=== PATIENT | female | born 1990 | race Caucasian/White ===

== ENCOUNTER → 2016-07-07 | Outpatient (REF) | payer BC | LOC: M SFHCLERA 17:15 | PROVIDERS: ATTEND Nurse Practitioner Family | DX: J02.9 Acute pharyngitis, unspecified (principal) ==

== ENCOUNTER → 2019-12-13 | Outpatient (REF) | payer OTHER ==
[2020-01-15 10:40] LABS: BASO % 0.3 % (0.0-1.0); EOS # 0.1 10^3/uL (0.0-0.5); HEMATOCRIT 32.8 % (36.0-47.0); HEMOGLOBIN 9.9 g/dl (12.0-15.5); LYMPH # 1.7 10^3/uL (1.5-5.0); MEAN CORPUSCULAR HEMOGLOBIN 25.4 pg (27.0-33.0); MEAN CORPUSCULAR HGB CONC 30.2 g/dl (32.0-36.5); MEAN CORPUSCULAR VOLUME 84.1 fl (80.0-96.0); MONO # 0.4 10^3/uL (0.0-0.8); MONO % 4.9 % (0.0-5.0); NEUTROPHILS # 6.6 10^3/uL (1.5-8.5); NEUTROPHILS % 74.5 % (36.0-66.0); PLATELET COUNT, AUTOMATED 267 10^3/uL (150-450); WHITE BLOOD COUNT 8.8 10^3/uL (4.0-10.0)
[2020-01-27 17:38] LABS: HEPATITIS C VIRUS ABY INDEX 0.2 INDEX (<0.8); HIV 1&2 SCREEN CENTAUR NEGATIVE (NEGATIVE)
== END ==
LOC: M SFHCWAGY 15:08
PROVIDERS: ATTEND Advanced Practice Midwife
DX: Z34.01 Encounter for supervision of normal first pregnancy, first trimester (principal)

== ENCOUNTER → 2020-01-17 | Outpatient (REF) | payer OTHER ==
[2020-01-17 15:41] LABS: CHLAMYDIA DNA AMPLIFICATION NEGATIVE (NEGATIVE); GC DNA AMPLIFICATION NEGATIVE (NEGATIVE)
== END ==
LOC: M SFHCWAGY 13:02
PROVIDERS: ATTEND Obstetrics & Gynecology
DX: N93.0 Postcoital and contact bleeding (principal); N84.1 Polyp of cervix uteri

== ENCOUNTER → 2020-03-27 | Outpatient (REF) | payer BC, OTHER ==
[2020-03-27 12:52] LABS: HEMATOCRIT 30.2 % (36.0-47.0); HEMOGLOBIN 8.5 g/dl (12.0-15.5); MEAN CORPUSCULAR HEMOGLOBIN 22.3 pg (27.0-33.0); MEAN CORPUSCULAR HGB CONC 28.1 g/dl (32.0-36.5); MEAN CORPUSCULAR VOLUME 79.1 fl (80.0-96.0); PLATELET COUNT, AUTOMATED 276 10^3/uL (150-450); RED BLOOD COUNT 3.82 10^6/uL (4.00-5.40); WHITE BLOOD COUNT 8.4 10^3/uL (4.0-10.0)
[2020-03-27 13:26] LABS: FREE T4 1.1 NG/DL (0.76-1.46); THYROID STIMULATING HORMONE 0.981 uIU/ML (0.358-3.740)
== END ==
LOC: M PLALAB 09:57
PROVIDERS: ATTEND Advanced Practice Midwife
DX: Z3A.23 23 weeks gestation of pregnancy (principal); Z34.82 Encounter for supervision of other normal pregnancy, second trimester

== ENCOUNTER → 2020-05-29 | Outpatient (REF) | payer BC, OTHER ==
[~2020-05-29] MED LIST: IRON27TA2 PO; LEVO150T7 PO; PROBCAP14 PO
== END ==
LOC: M SFHCWAGY 14:10
PROVIDERS: ATTEND Obstetrics & Gynecology
DX: Z34.93 Encounter for supervision of normal pregnancy, unspecified, third trimester (principal); Z3A.36 36 weeks gestation of pregnancy

== ENCOUNTER 2020-06-14 09:11 | Inpatient (IN) | payer BC, OTHER ==
[2020-06-14] VITALS (20 sets, daily range): BP systolic 117–158; BP diastolic 60–95
[~2020-06-14] VITALS: Ht 167.6 cm; Wt 94.4 kg
[2020-06-14] MEDS ORDERED: IRON27TA2 PO (09:24)
[2020-06-14] MEDS ORDERED: LEVO150T7 PO (09:24)
[2020-06-14] MEDS ORDERED: PROBCAP14 PO (09:25)
--- OUTSIDE RECORDS SUMMARY | 2020-06-14 09:46 | CCD ---
Author Author [facility] Organization [facility] Address Unknown Phone Unavailable Care Team Providers Care Continuous Process Tanner Rotary Drum Name Role Phone AguayoJuvenal velásquez Unavailable PROBLEMS Type Condition ICD9-CM Code [id number] Code Onset Dates Condition S tatus SNOMED Code Notes Problem Anemia complicating , third trimester O99 .013 Active 75960261 Problem Anemia complicating , second trimester O9 9.012 Active 70446940 Problem Supervision of other normal Z34.80 Ac tive [id number] ALLERGIES No Known Allergies ENCOUNTERS from 1992 to 2020-05-16 Encounter Location Date Provider Diagnosis [facility] [address] [place] [phone] May, Juvenal Aguayo Anemia complicating , third trimester O99.013 and 34 weeks gestation of Z3A.34 IMMUNIZATIONS Vaccine Route Administration Date Status TDAP 0.5mL (Boostrix) IM Intramuscular Apr 25, 2020 Administe red Influenza (6mo & up) Fluzone Unknown July 07, 2016 Oth ers Influenza (6mo & up) Fluzone Unknown May 07, 2015 Ref used Influenza (6mo & up) Fluzone Unknown Feb 01, 2014 Adm inistered SOCIAL HISTORY Sex Assigned At : Social History Observation Description Sex Assigned At Unknown Alcohol Screening: Question Answer Notes Did you have a drink containing alcohol in the past year? No Points 0 Interpretation Negative REASON FOR REFERRAL No Information VITAL SIGNS Weight 204.6 lbs May, Height 66 in May, BMI 33.023 kg/m2 May, Blood pressure systolic 102 mm Hg May, Blood pressure diastolic 68 mm Hg May, MEDICATIONS Medication SIG (Take, Route, Frequency, Duration) Notes Start Da te End Date Status Probiotic Active Levothyroxine Sodium 150 MCG 1 capsule Orally Once a day Active Ferrous Sulfate 325 (65 Fe) MG 1 tablet Orally Twice daily for 3 0 day(s) Mar, Active PROCEDURES No Information RESULTS No Results REASON FOR VISIT 4 WK PN MEDICAL (GENERAL) HISTORY Type Description Date Medical History Hypothyroidism Surgical History D&C Hospitalization History Childbirth Goals Section No Information Health Concerns No Information MEDICAL EQUIPMENT No Information MENTAL STATUS No Information FUNCTIONAL STATUS No Information ASSESSMENTS Encounter Date Diagnosis Assessment Notes Treatment Notes Treatm ent Clinical Notes May, Anemia complicating , third tri mester (ICD-10 - O99.013) May, 34 weeks gestation of (ICD-10 - Z3A.34 ) PLAN OF TREATMENT Next Appt Details 2 Weeks Reason:follow-up Provider Name:Juvenal Aguayo, 09:00:00 AM, [address] [place], [address], Follow Up:2 Weeksfollow-up Insurance Providers Payer Name Payer Address Payer Phone Insured Name Patient Relati onship to Insured Coverage Start Date Coverage End Date [facility] CORPORATE CLAIMS DEPT [address] [place] [phone] NERY ELIZABETH self
--- OUTSIDE RECORDS SUMMARY | 2020-06-14 09:46 | CCD ---
Author Author [facility] Organization [facility] Address Unknown Phone Unavailable Care Team Providers Care Events Administrative Assistant Name Role Phone Akosua Oro Unavailable PROBLEMS Type Condition ICD9-CM Code [id number] Code Onset Dates Condition S tatus SNOMED Code Notes Problem Supervision of other normal Z34.80 Ac tive 273280430 Problem Anemia complicating , second trimester O9 9.012 Active [id number] ALLERGIES No Known Allergies ENCOUNTERS from 1992 to 2020-03-28 Encounter Location Date Provider Diagnosis [facility] [address] [place] [phone] Mar, Akosua Oro Anemia complicati ng , second trimester O99.012 and Second trimester Z34.92 IMMUNIZATIONS Vaccine Route Administration Date Status Influenza (6mo & up) Fluzone Unknown July [...] REASON FOR REFERRAL No Information VITAL SIGNS No information MEDICATIONS Medication SIG (Take, Route, Frequency, Duration) Notes Start Da te End Date Status Probiotic Active Ferrous Sulfate 325 (65 Fe) MG 1 tablet Orally Twice daily for 3 0 day(s) Mar, Active Levothyroxine Sodium 150 MCG 1 capsule Orally Once a day Active PROCEDURES No Information RESULTS No Results REASON FOR VISIT No Information MEDICAL (GENERAL) HISTORY Type Description Date Medical History Hypothyroidism Surgical History D&C Hospitalization History Childbirth Goals Section No Information Health Concerns No Information MEDICAL EQUIPMENT No Information MENTAL STATUS No Information FUNCTIONAL STATUS No Information ASSESSMENTS Encounter Date Diagnosis Assessment Notes Treatment Notes Treatm ent Clinical Notes Mar, Anemia complicating , second tr imester (ICD-10 - O99.012) Mar, Second trimester (ICD-10 - Z34.92) PLAN OF TREATMENT Medication Medication Name Sig Start Date Stop Date Ferrous Sulfate 325 (65 Fe) MG 1 tablet Orally Twice daily f or 30 day(s) Mar, Treatment Notes Test Name Order Date GLUCOSE STEVIE 3 HR GESTATIONAL 2020-03-28 Next Appt Details Provider Name:Juvenal Aguayo, 10:30:00 AM, [address] [place], [address], Insurance Providers Payer Name Payer Address Payer Phone Insured Name Patient Relati onship to Insured Coverage Start Date Coverage End Date [employer] PPO [phone] [address] Marley Sebastian
--- OUTSIDE RECORDS SUMMARY | 2020-06-14 09:46 | CCD ---
Author Author [facility] Organization [facility] Address Unknown Phone Unavailable Care Team Providers Care Burlap Man Name Role Phone LaishaAkosua clark Unavailable PROBLEMS Type Condition ICD9-CM Code [id number] Code Onset Dates Condition S tatus W/U Status Risk SNOMED Code Notes Problem Anemia complicating , third trimester O99 .013 Active confirmed 30899264 Problem Anemia complicating , second trimester O9 9.012 Active confirmed 59360321 Problem Supervision of other normal Z34.80 Ac tive confirm [id number] ALLERGIES No Known Allergies ENCOUNTERS from 1992 to 2020-06-12 Encounter Location Date Provider Diagnosis [facility] [place] [address] Jun, Akosua [place] Encounter for sup ervision of normal in multigravida in third trimester Z34.83 and 37 weeks gestation of Z3A.37 IMMUNIZATIONS Vaccine Route Administration Date Status TDAP [...] FOR REFERRAL No Information VITAL SIGNS Weight 208.8 lbs Jun, Height 66 in 02 Feb, 2021 BMI 33.701 kg/m2 02 Feb, 2021 Blood pressure systolic 110 mm Hg Jun, Blood pressure diastolic 70 mm Hg Jun, MEDICATIONS Medication SIG (Take, Route, Frequency, Duration) Notes Start Da te End Date Status Probiotic Active Ferrous Sulfate 325 (65 Fe) MG 1 tablet Orally Twice daily for 3 0 day(s) Mar, Active Levothyroxine Sodium 150 MCG 1 capsule Orally Once a day Active PROCEDURES No Information RESULTS No Results REASON FOR VISIT 1WK PN MEDICAL (GENERAL) HISTORY Type Description Date Medical History Hypothyroidism Surgical History D&C Hospitalization History Childbirth Goals Section No Information Health Concerns No Information MEDICAL EQUIPMENT No Information MENTAL STATUS No Information FUNCTIONAL STATUS No Information ASSESSMENTS Encounter Date Diagnosis Assessment Notes Treatment Notes Treatm ent Clinical Notes Jun, Encounter for supervision of normal in multigravida in third trimester (ICD-10 - Z34.83) Jun, 37 weeks gestation of (ICD-10 - Z3A.37 ) PLAN OF TREATMENT Next Appt Details 1 Week Reason:return ob Provider Name:Johnie Garces, 2020-06-13 10:20:00 AM, [address] [place], [address], Follow Up:1 Weekreturn ob Insurance Providers Payer Name Payer Address Payer Phone Insured Name Patient Relati onship to Insured Coverage Start Date Coverage End Date [employer] CLAIMS DEPT [address] [facility] [phone] NERY ELIZABETH self
--- OUTSIDE RECORDS SUMMARY | 2020-06-14 09:46 | CCD ---
Author Author [facility] Organization [facility] Address Unknown Phone Unavailable Care Team Providers Care Clinical Support Manager Name Role Phone Akosua Oro Unavailable PROBLEMS Type Condition ICD9-CM Code [id number] Code Onset Dates Condition S tatus SNOMED Code Notes Problem Supervision of other normal Z34.80 Ac tive [id number] ALLERGIES No Known Allergies ENCOUNTERS from 1992 to 2020-03-21 Encounter Location Date Provider Diagnosis [facility] [address] [place] [address] Feb, Akosuaastrid Oro Encounter for sup ervision of other normal in second trimester Z34.82 and 23 weeks gestation of Z3A.23 IMMUNIZATIONS Vaccine Route Administration Date Status Influenza [...] FOR REFERRAL No Information VITAL SIGNS Weight 192 lbs Feb, Height 66 in Feb, BMI 30.99 kg/m2 Feb, Blood pressure systolic 124 mm Hg Feb, Blood pressure diastolic 72 mm Hg Feb, MEDICATIONS Medication SIG (Take, Route, Frequency, Duration) Notes Start Da te End Date Status Levothyroxine Sodium 150 MCG 1 capsule Orally Once a day Active Probiotic Active PROCEDURES No Information RESULTS No Results REASON FOR VISIT 4 WK PN MEDICAL (GENERAL) HISTORY Type Description Date Medical History Hypothyroidism Surgical History D&C Hospitalization History Childbirth Goals Section No Information Health Concerns No Information MEDICAL EQUIPMENT No Information MENTAL STATUS No Information FUNCTIONAL STATUS No Information ASSESSMENTS Encounter Date Diagnosis Assessment Notes Treatment Notes Treatm ent Clinical Notes Feb, Encounter for supervision of other normal in second trimester (ICD-10 - Z34.82) Feb, 23 weeks gestation of (ICD-10 - Z3A.23 ) PLAN OF TREATMENT Treatment Notes Test Name Order Date CBC - Complete Blood Count 2020-03-21 AB SCREEN (INDIRECT MICHEAL)GEL Antibody Screen 2020-03 Type and Screen (D Rh Antibody Screen) 2020-03-21 Glucose Challenge Test 1 Hour 2020-03-21 FREE T4 & TSH PANEL 2020-03-21 Next Appt Details 4 Weeks Reason:return ob Provider Name:Edel Rudolph, 2020-03-27 1 0:20:00 AM, [address] [place], [address], Follow Up:4 Weeksreturn ob Insurance Providers Payer Name Payer Address Payer Phone Insured Name Patient Relati onship to Insured Coverage Start Date Coverage End Date [employer] PPO [phone] [address] Marley Sebastian
--- OUTSIDE RECORDS SUMMARY | 2020-06-14 09:46 | CCD ---
Author Author [facility] Organization [facility] Address Unknown Phone Unavailable Care Team Providers Care Environmental Monitoring Technician Name Role Phone Edel Rudolph Unavailable PROBLEMS Type Condition ICD9-CM Code [id number] Code Onset Dates Condition S tatus SNOMED Code Notes Problem Supervision of other normal Z34.80 Ac tive 578736796 Problem Anemia complicating , second trimester O9 9.012 Active 69621937 ALLERGIES No Known Allergies ENCOUNTERS from 1992 to 2020-03-31 Encounter Location Date Provider Diagnosis [facility] [place] [address] Mar, Edel Simonn Encounter for superv ision of other normal in third trimester Z34.83 IMMUNIZATIONS Vaccine Route Administration Date Status Influenza [...] FOR REFERRAL No Information VITAL SIGNS Weight 197 lbs Mar, Height 66 in Mar, BMI 31.797 kg/m2 Mar, Blood pressure systolic 126 mm Hg Mar, Blood pressure diastolic 74 mm Hg Mar, MEDICATIONS Medication SIG (Take, Route, Frequency, Duration) [...] Treatment Notes Treatm ent Clinical Notes Mar, Encounter for supervision of other normal in third trimester (ICD-10 - Z34.83) PLAN OF TREATMENT Medication Medication Name Sig Start Date Stop Date Ferrous Sulfate 325 (65 Fe) MG 1 tablet Orally Twice daily f or 30 day(s) Mar, Next Appt Details 4 Weeks Reason:PN Provider Name:Juvenal Aguayo, 10:30:00 AM, [address] [place], [address], Follow Up:4 WeeksPN Insurance Providers Payer Name Payer Address Payer Phone Insured Name Patient Relati onship to Insured Coverage Start Date Coverage End Date [employer] PPO [phone] [address] Marley Sebastian
--- OUTSIDE RECORDS SUMMARY | 2020-06-14 09:46 | CCD ---
Author Author [facility] Organization [facility] Address Unknown Phone Unavailable Care Team Providers Care Sweatband Flanger Name Role Phone Juvenal Aguayo Unavailable PROBLEMS Type Condition ICD9-CM Code [id number] Code Onset Dates Condition S tatus W/U Status Risk SNOMED Code Notes Problem Anemia complicating , third trimester O99 .013 Active confirmed 90965783 Problem Anemia complicating , second trimester O9 9.012 Active confirmed 54905725 Problem Supervision of other normal Z34.80 Ac tive confirm [id number] ALLERGIES No Known Allergies ENCOUNTERS from 1992 to 2020-06-12 Encounter Location Date Provider Diagnosis [facility] [address] [place] [phone] May, Juvenal Aguayo Anemia complicating , third trimester O99.013 and 36 weeks gestation of Z3A.36 IMMUNIZATIONS Vaccine Route Administration Date Status TDAP [...] FOR REFERRAL No Information VITAL SIGNS Weight 205.6 lbs May, Height 66 in May, BMI 33.185 kg/m2 May, Blood pressure systolic 110 mm Hg May, Blood pressure diastolic 70 mm Hg May, MEDICATIONS Medication SIG (Take, Route, Frequency, Duration) Notes Start Da te End Date Status Probiotic Active Ferrous Sulfate 325 (65 Fe) MG 1 tablet Orally Twice daily for 3 0 day(s) Mar, Active Levothyroxine Sodium 150 MCG 1 capsule Orally Once a day Active PROCEDURES No Information RESULTS Component Value Reference Range GROUP B STREP CULTURE Reviewed date:05/31/2020 11:28:42 Interpretation: Performing Lab:[facility], [facility] [address] [facility] [id number] , ,[place] [id number] REASON FOR VISIT 2WK PN MEDICAL (GENERAL) HISTORY Type Description Date Medical History Hypothyroidism Surgical History D&C Hospitalization History Childbirth Goals Section No Information Health Concerns No Information MEDICAL EQUIPMENT No Information MENTAL STATUS No Information FUNCTIONAL STATUS No Information ASSESSMENTS Encounter Date Diagnosis Assessment Notes Treatment Notes Treatm ent Clinical Notes May, Anemia complicating , third tri mester (ICD-10 - O99.013) May, 36 weeks gestation of (ICD-10 - Z3A.36 ) PLAN OF TREATMENT Next Appt Details 1 Week Reason:PN Provider Name:Johnie Keke Garces, 2020-06-13 10:20:00 AM, [address] [place], [address], Follow Up:1 WeekPN Insurance Providers Payer Name Payer Address Payer Phone Insured Name Patient Relati onship to Insured Coverage Start Date Coverage End Date [facility] CORPORATE CLAIMS DEPT [address] [place] [phone] NERY ELIZABETH self
--- OUTSIDE RECORDS SUMMARY | 2020-06-14 09:46 | CCD ---
Author Author [facility] Organization [facility] Address Unknown Phone Unavailable Care Team Providers Care Manager Of Warehouse Name Role Phone Juvenal Aguayo Unavailable PROBLEMS Type Condition ICD9-CM Code [id number] Code Onset Dates Condition S tatus SNOMED Code Notes Problem Anemia complicating , third trimester O99 .013 Active 07534738 Problem Anemia complicating , second trimester O9 9.012 Active 95695263 Problem Supervision of other normal Z34.80 Ac tive [id number] ALLERGIES No Known Allergies ENCOUNTERS from 1992 to 2020-05-02 Encounter Location Date Provider Diagnosis [facility] [address] [place] [phone] Apr, Juvenal Aguayo Anemia complicating , third trimester O99.013 ; 31 weeks gestation of Z3A.31 and Encounter for immunization Z23 IMMUNIZATIONS Vaccine Route Administration Date Status TDAP [...] FOR REFERRAL No Information VITAL SIGNS Weight 202 lbs Apr, Height 66 in Apr, BMI 32.604 kg/m2 Apr, Blood pressure systolic 108 mm Hg Apr, Blood pressure diastolic 60 mm Hg Apr, MEDICATIONS Medication SIG (Take, Route, Frequency, Duration) Notes Start Da te End Date Status Ferrous Sulfate 325 (65 Fe) MG 1 tablet Orally Twice daily for 3 0 day(s) Mar, Active Probiotic Active Levothyroxine Sodium 150 MCG 1 capsule Orally Once a day Active PROCEDURES from 1992 to 2020-05-02 Procedure Date Ordered Result Body Site Immunization: Boostrix 0.5mL IM (TDAP) 2020-04-25 N/A RESULTS No Results REASON FOR VISIT 4 WK PN MEDICAL (GENERAL) HISTORY Type Description Date Medical History Hypothyroidism Surgical History D&C Hospitalization History Childbirth Goals Section No Information Health Concerns No Information MEDICAL EQUIPMENT No Information MENTAL STATUS No Information FUNCTIONAL STATUS No Information ASSESSMENTS Encounter Date Diagnosis Assessment Notes Treatment Notes Treatm ent Clinical Notes Apr, Anemia complicating , third tri mester (ICD-10 - O99.013) Apr, 31 weeks gestation of (ICD-10 - Z3A.31 ) Apr, Encounter for immunization (ICD-10 - Z23) PLAN OF TREATMENT Next Appt Details 2 Weeks Reason:follow-up Provider Name:Juvenal Aguayo, 09:40:00 AM, [facility] [place], [address], Follow Up:2 Weeksfollow-up Insurance Providers Payer Name Payer Address Payer Phone Insured Name Patient Relati onship to Insured Coverage Start Date Coverage End Date [employer] PPO [phone] [place] [id number] Marley Sebastian
--- OUTSIDE RECORDS SUMMARY | 2020-06-14 09:47 | CCD ---
Author Author [facility] Organization [facility] Address Unknown Phone Unavailable Care Team Providers Care Material Requirements Planning Manager Name Role Phone Lori De La Paz PA Unavailable Unavailable Ana Cristina, L Anupama PA Unavailable Unavailable Ana Cristina, L Anupama PA Unavailable Unavailable Ana Cristina, L Anupama PA Unavailable Unavailable Ana Cristina, L Anupama PA Unavailable Unavailable Ana Cristina, L Anupama PA Unavailable Unavailable Ana Cristina, L Anupama PA Unavailable Unavailable Ana Cristina, L Anupama PA Unavailable Unavailable Ana Cristina, L Anupama PA Unavailable Unavailable Ana Cristina, L Anupama PA Unavailable Unavailable Ana Cristina, L Anupama PA Unavailable Unavailable Ana Cristina, L Anupama PA Unavailable Unavailable Ana Cristina, L Anupama PA Unavailable Unavailable Ana Cristina, L Anupama PA Unavailable Unavailable Ana Cristina, L Anupama PA Unavailable Unavailable Ana Cristina, L Anupama PA Unavailable Unavailable Ana Cristina, L Anupama PA Unavailable Unavailable Ana Cristina, L Anupama PA Unavailable Unavailable Ana Cristina, L Anupama PA Unavailable Unavailable Ana Cristina, L Anupama PA Unavailable Unavailable Ana Cristina, L Anupama PA Unavailable Unavailable Ana Cristina, L Anupama PA Unavailable Unavailable Ana Cristina, L Anupama PA Unavailable Unavailable Ana Cristina, L Anupama PA Unavailable Unavailable Ana Cristina, L Anupama PA Unavailable Unavailable Ana Cristina, L Anupama PA Unavailable Unavailable Ana Cristina, L Anupama PA Unavailable Unavailable Ana Cristina, L Anupama PA Unavailable Unavailable Ana Cristina, L Anupama PA Unavailable Unavailable Ana Cristina, L Anupama PA Unavailable Unavailable Ana Cristina, L Anupama PA Unavailable Unavailable Ana Cristina, L Anupama PA Unavailable Unavailable Ana Cristina, L Anupama PA Unavailable Unavailable Ana Cristina, L Anupama PA Unavailable Unavailable Paredes, R Julio PA Unavailable Unavailable XAVIERDiego MD Unavailable Unavailable XAVIERDiego MD Unavailable Unavailable XAVIER F BETHANY BUCKLEY Unavailable Unavailable XAVIER F BETHANY BUCKLEY Unavailable Unavailable XAVIERDiego MD Unavailable Unavailable XAVIERDiego MD Unavailable Unavailable XAVIERDiego MD Unavailable Unavailable XAVIER F BETHANY BUCKLEY Unavailable Unavailable XAVIER F BETHANY BUCKLEY Unavailable Unavailable XAVIER F BETHANY BUCKLEY Unavailable Unavailable XAVIER F BETHANY BUCKLEY Unavailable Unavailable XAVIERDiego MD Unavailable Unavailable XAVIER F BETHANY BUCKLEY Unavailable Unavailable XAVIER F BETHANY BUCKLEY Unavailable Unavailable XAVIER F BETHANY BUCKLEY Unavailable Unavailable XAVIER F BETHANY BUCKLEY Unavailable Unavailable XAVIER F BETHANY BUCKLEY Unavailable Unavailable XAVIER, F BETHANY BUCKLEY Unavailable Unavailable XAVIER, Diego SIMS MD Unavailable Unavailable XAVIER, Diego SIMS MD Unavailable Unavailable XAVIER, Diego SIMS MD Unavailable Unavailable XAVIER, Diego SIMS MD Unavailable Unavailable XAVIER, F BETHANY BUCKLEY Unavailable Unavailable XAVIER, Diego SIMS MD Unavailable Unavailable XAVIER, Diego SIMS MD Unavailable Unavailable XAVIER, Diego SIMS MD Unavailable Unavailable XAVIER, Diego SIMS MD Unavailable Unavailable Amy GERMAN MD Unavailable +[phone] Amy GERMAN MD Unavailable +011 Amy GERMAN MD Unavailable +011 Amy GERMAN MD Unavailable +011 Amy GERMAN MD Unavailable +011 Amy GERMAN MD Unavailable +011 Amy GERMAN MD Unavailable +011 Amy GERMAN MD Unavailable +011 Amy GERMAN MD Unavailable +011 Amy GERMAN MD Unavailable +011 Amy GERMAN MD Unavailable +[phone] Paredes, R Julio PA Unavailable Paredes, R Julio PA Unavailable Paredes, R Julio PA Unavailable Paredes, R Julio PA Unavailable Paredes, R Julio PA Unavailable Paredes, R Julio PA Unavailable Paredes, R Julio PA Unavailable Paredes, R Julio PA Unavailable WEI FORREST RIM ROLLER SETTER Unavailable Unavailable WEI FORREST RIM ROLLER SETTER Unavailable Unavailable WEI FROREST RIM ROLLER SETTER Unavailable Unavailable WEI FORREST RIM ROLLER SETTER Unavailable Unavailable WEI FORREST RIM ROLLER SETTER Unavailable Unavailable WEI FORREST RIM ROLLER SETTER Unavailable Unavailable FORREST, WEI MARIA EUGENIA RIM ROLLER SETTER Unavailable Unavailable FORREST, WEI MARIA EUGENIA RIM ROLLER SETTER Unavailable Unavailable FORREST, WEI MARIA EUGENIA RIM ROLLER SETTER Unavailable Unavailable FORREST, WEI MARIA EUGENIA RIM ROLLER SETTER Unavailable Unavailable FORREST, WEI MARIA EUGENIA RIM ROLLER SETTER Unavailable Unavailable FORREST, WEI MARIA EUGENIA RIM ROLLER SETTER Unavailable Unavailable FORREST, WEI MARIA EUGENIA RIM ROLLER SETTER Unavailable Unavailable FORREST, WEI MARIA EUGENIA RIM ROLLER SETTER Unavailable Unavailable FORREST, WEI MARIA EUGENIA RIM ROLLER SETTER Unavailable Unavailable FORREST, WEI MARIA EUGENIA RIM ROLLER SETTER Unavailable Unavailable FORREST, WEI MARIA EUGENIA RIM ROLLER SETTER Unavailable Unavailable FORREST, WEI MARIA EUGENIA RIM ROLLER SETTER Unavailable Unavailable FORREST, WEI MARIA EUGENIA RIM ROLLER SETTER Unavailable Unavailable FORREST, WEI MARIA EUGENIA RIM ROLLER SETTER Unavailable Unavailable FORREST, WEI MARIA EUGENIA RIM ROLLER SETTER Unavailable Unavailable FORREST, WEI MARIA EUGENIA RIM ROLLER SETTER Unavailable Unavailable FORREST, WEI MARIA EUGENIA RIM ROLLER SETTER Unavailable Unavailable FORREST, WEI MARIA EUGENIA RIM ROLLER SETTER Unavailable Unavailable FORREST, WEI MARIA EUGENIA RIM ROLLER SETTER Unavailable Unavailable FORREST, WEI MARIA EUGENIA RIM ROLLER SETTER Unavailable Unavailable FORREST, WEI MARIA EUGENIA RIM ROLLER SETTER Unavailable Unavailable FORREST, WEI MARIA EUGENIA RIM ROLLER SETTER Unavailable Unavailable FORREST, WEI MARIA EUGENIA RIM ROLLER SETTER Unavailable Unavailable FORREST, WIE MARIA EUGENIA RIM ROLLER SETTER Unavailable Unavailable FORREST, WEI MARIA EUGENIA RIM ROLLER SETTER Unavailable Unavailable FORREST, WEI MARIA EUGENIA RIM ROLLER SETTER Unavailable Unavailable FORREST, WEI MARIA EUGENIA RIM ROLLER SETTER Unavailable Unavailable FORREST, WEI MARIA EUGENIA RIM ROLLER SETTER Unavailable Unavailable FORREST, WEI MARIA EUGENIA RIM ROLLER SETTER Unavailable Unavailable FORREST, WEI MARIA EUGENIA RIM ROLLER SETTER Unavailable Unavailable FORREST, WEI MARIA EUGENIA RIM ROLLER SETTER Unavailable Unavailable FORREST, WEI MARIA EUGENIA RIM ROLLER SETTER Unavailable Unavailable FORREST, WEI MARIA EUGENIA RIM ROLLER SETTER Unavailable Unavailable FORREST, WEI MARIA EUGENIA RIM ROLLER SETTER Unavailable Unavailable FORREST, WEI MARIA EUGENIA RIM ROLLER SETTER Unavailable Unavailable FORREST, WEI MARIA EUGENIA RIM ROLLER SETTER Unavailable Unavailable FORREST, WEI MARIA EUGENIA RIM ROLLER SETTER Unavailable Unavailable FORREST, WEI MARIA EUGENIA RIM ROLLER SETTER Unavailable Unavailable FORREST, WEI MARIA EUGENIA RIM ROLLER SETTER Unavailable Unavailable FORREST, WEI MARIA EUGENIA RIM ROLLER SETTER Unavailable Unavailable FORREST, WEI MARIA EUGENIA RIM ROLLER SETTER Unavailable Unavailable FORREST, WEI MARIA EUGENIA RIM ROLLER SETTER Unavailable Unavailable FORREST, WEI MARIA EUGENIA RIM ROLLER SETTER Unavailable Unavailable FORREST, WEI MARIA EUGENIA RIM ROLLER SETTER Unavailable Unavailable Vallandigham, D Akosua CNM Unavailable Unavailabl e Vallandigham, D Akosua CNM Unavailable Unavailabl e Vallandigham, D Akosua CNM Unavailable Unavailabl e Vallandigham, D Akosua CNM Unavailable Unavailabl e Vallandigham, D Akosua CNM Unavailable Unavailabl e Vallandigham, D Akosua CNM Unavailable Unavailabl e Vallandigham, D Akosua CNM Unavailable Unavailabl e Vallandigham, D Akosua CNM Unavailable Unavailabl e Vallandigham, D Akosua CNM Unavailable Unavailabl e Vallandigham, D Akosua CNM Unavailable Unavailabl e Vallandigham, D Akosua CNM Unavailable Unavailabl e Vallandigham, D Akosua CNM Unavailable Unavailabl e Vallandigham, D Akosua CNM Unavailable Unavailabl e Vallandigham, D Akosua CNM Unavailable Unavailabl e Vallandigham, D Akosua CNM Unavailable Unavailabl e Vallandigham, D Akosua CNM Unavailable Unavailabl e Vallandigham, D Akosua CNM Unavailable Unavailabl e Vallandigham, D Akosua CNM Unavailable Unavailabl e Vallandigham, D Akosua CNM Unavailable Unavailabl e Vallandigham, D Akosua CNM Unavailable Unavailabl e Vallandigham, D Akosua CNM Unavailable Unavailabl e Vallandigham, D Akosua CNM Unavailable Unavailabl e Vallandigham, D Akosua CNM Unavailable Unavailabl e Vallandigham, D Akosua CNM Unavailable Unavailabl e Vallandigham, D Akosua CNM Unavailable Unavailabl e FORREST, WEI MARIA EUGENIA RIM ROLLER SETTER Unavailable Unavailable FORREST, WEI MARIA EUGENIA RIM ROLLER SETTER Unavailable Unavailable FORREST, WEI MARIA EUGENIA RIM ROLLER SETTER Unavailable Unavailable FORREST, WEI MARIA EUGENIA RIM ROLLER SETTER Unavailable Unavailable FORREST, WEI MARIA EUGENIA RIM ROLLER SETTER Unavailable Unavailable FORREST, WEI MARIA EUGENIA RIM ROLLER SETTER Unavailable Unavailable FORREST, WEI MARIA EUGENIA RIM ROLLER SETTER Unavailable Unavailable FORREST, WEI MARIA EUGENIA RIM ROLLER SETTER Unavailable Unavailable FORREST, WEI MARIA EUGENIA RIM ROLLER SETTER Unavailable Unavailable FORREST, WEI MARIA EUGENIA RIM ROLLER SETTER Unavailable Unavailable FORREST, WEI MARIA EUGENIA RIM ROLLER SETTER Unavailable Unavailable FORREST, WEI MARIA EUGENIA RIM ROLLER SETTER Unavailable Unavailable FORREST, WEI MARIA EUGENIA RIM ROLLER SETTER Unavailable Unavailable FORREST, WEI MARIA EUGENIA RIM ROLLER SETTER Unavailable Unavailable FORREST, WEI MARIA EUGENIA RIM ROLLER SETTER Unavailable Unavailable FORREST, WEI MARIA EUGENIA RIM ROLLER SETTER Unavailable Unavailable FORREST, WEI MARIA EUGENIA RIM ROLLER SETTER Unavailable Unavailable FORREST, WEI MARIA EUGENIA RIM ROLLER SETTER Unavailable Unavailable FORREST, WEI MARIA EUGENIA RIM ROLLER SETTER Unavailable Unavailable FORREST, WEI MARIA EUGENIA RIM ROLLER SETTER Unavailable Unavailable FORREST, WEI MARIA EUGENIA RIM ROLLER SETTER Unavailable Unavailable FORREST, WEI MARIA EUGENIA RIM ROLLER SETTER Unavailable Unavailable FORREST, WEI MARIA EUGENIA RIM ROLLER SETTER Unavailable Unavailable FORREST, WEI MARIA EUGENIA RIM ROLLER SETTER Unavailable Unavailable FORREST, WEI MARIA EUGENIA RIM ROLLER SETTER Unavailable Unavailable FORREST, WEI MARIA EUGENIA RIM ROLLER SETTER Unavailable Unavailable FORREST, WEI MARIA EUGENIA RIM ROLLER SETTER Unavailable Unavailable FORREST, WEI MARIA EUGENIA RIM ROLLER SETTER Unavailable Unavailable FORREST, WEI MARIA EUGENIA RIM ROLLER SETTER Unavailable Unavailable FORREST, WEI MARIA EUGENIA RIM ROLLER SETTER Unavailable Unavailable FORREST, WEI MARIA EUGENIA RIM ROLLER SETTER Unavailable Unavailable FORREST, WEI MARIA EUGENIA RIM ROLLER SETTER Unavailable Unavailable FORREST, WEI MARIA EUGENIA RIM ROLLER SETTER Unavailable Unavailable FORREST, WEI MARIA EUGENIA RIM ROLLER SETTER Unavailable Unavailable FORREST, WEI MARIA EUGENIA RIM ROLLER SETTER Unavailable Unavailable FORREST, WEI MARIA EUGENIA RIM ROLLER SETTER Unavailable Unavailable FORREST, WEI MARIA EUGENIA RIM ROLLER SETTER Unavailable Unavailable FORREST, WEI MARIA EUGENIA RIM ROLLER SETTER Unavailable Unavailable FORREST, WEI MARIA EUGENIA RIM ROLLER SETTER Unavailable Unavailable FORREST, WEI MARIA EUGENIA RIM ROLLER SETTER Unavailable Unavailable FORREST, WEI MARIA EUGENIA RIM ROLLER SETTER Unavailable Unavailable FORREST, WEI MARIA EUGENIA RIM ROLLER SETTER Unavailable Unavailable FORREST, WEI MARIA EUGENIA RIM ROLLER SETTER Unavailable Unavailable FORREST, WEI MARIA EUGENIA RIM ROLLER SETTER Unavailable Unavailable FORREST, WEI MARIA EUGENIA RIM ROLLER SETTER Unavailable Unavailable FORREST, WEI MARIA EUGENIA RIM ROLLER SETTER Unavailable Unavailable FORREST, WEI MARIA EUGENIA RIM ROLLER SETTER Unavailable Unavailable FORREST, WEI MARIA EUGENIA RIM ROLLER SETTER Unavailable Unavailable FORREST, WEI MARIA EUGENIA RIM ROLLER SETTER Unavailable Unavailable FORREST, WEI MARIA EUGENIA RIM ROLLER SETTER Unavailable Unavailable MOREL, REINA MELISSA RIM ROLLER SETTER Unavailable Unavailable MOREL, REINA MELISSA RIM ROLLER SETTER Unavailable Unavailable MOREL, REINA MELISSA RIM ROLLER SETTER Unavailable Unavailable MOREL, REINA MELISSA RIM ROLLER SETTER Unavailable Unavailable MOREL, REINA MELISSA RIM ROLLER SETTER Unavailable Unavailable MOREL, REINA MELISSA RIM ROLLER SETTER Unavailable Unavailable MOREL, REINA MELISSA RIM ROLLER SETTER Unavailable Unavailable MOREL, REINA MELISSA RIM ROLLER SETTER Unavailable Unavailable MOREL, REINA MELISSA RIM ROLLER SETTER Unavailable Unavailable MOREL, REINA MELISSA RIM ROLLER SETTER Unavailable Unavailable MOREL, REINA MELISSA RIM ROLLER SETTER Unavailable Unavailable MOREL, REINA MELISSA RIM ROLLER SETTER Unavailable Unavailable MOREL, REINA MELISSA RIM ROLLER SETTER Unavailable Unavailable MOREL, REINA MELISSA RIM ROLLER SETTER Unavailable Unavailable MOREL, REINA MELISSA RIM ROLLER SETTER Unavailable Unavailable MOREL, REINA MELISSA RIM ROLLER SETTER Unavailable Unavailable MOREL, REINA MELISSA RIM ROLLER SETTER Unavailable Unavailable MOREL, REINA MELISSA RIM ROLLER SETTER Unavailable Unavailable MOREL, REINA MELISSA RIM ROLLER SETTER Unavailable Unavailable MOREL, REINA MELISSA RIM ROLLER SETTER Unavailable Unavailable MOREL, REINA MELISSA RIM ROLLER SETTER Unavailable Unavailable MOREL, REINA MELISSA RIM ROLLER SETTER Unavailable Unavailable MOREL, REINA MELISSA RIM ROLLER SETTER Unavailable Unavailable Re-disclosure Warning The records that you are about to access may contain information from federally-assisted alcohol or drug abuse programs. If such information is present, then the following federally mandated warning applies: This information has been disclosed to you from records protected by federal confidentiality rules (42 CFR part 2). The federal rules prohibit you from making any further disclosure of this information unless further disclosure is expressly permitted by the written consent of the person to whom it pertains or as otherwise permitted by 42 CFR part 2. A general authorization for the release of medical or other information is NOT sufficient for this purpose. The Federal rules restrict any use of the information to criminally investigate or prosecute any alcohol or drug abuse patient.The records that you are about to access may contain highly sensitive health information, the redisclosure of which is protected by Article 27-F of the [facility] Public Health law. If you continue you may have access to information: Regarding HIV / AIDS; Provided by facilities licensed or operated by the [facility] Office of Mental Health; or Provided by the [facility] Office for People With Developmental Disabilities. If such information is present, then the following [facility] mandated warning applies: This information has been disclosed to you from confidential records which are protected by state law. State law prohibits you from making any further disclosure of this information without the specific written consent of the person to whom it pertains, or as otherwise permitted by law. Any unauthorized further disclosure in violation of state law may result in a fine or shelter sentence or both. A general authorization for the release of medical or other information is NOT sufficient authorization for further disc losure. Allergies and Adverse Reactions Type Description Substance Reaction Status Data Source(s ) No Known Drug Allergies No Known Drug Allergies [facility] No Known Environmental Allergies No Known Environmental Al lergies [facility] No Known Food Allergies No Known Food Allergies [facility] Drug allergy Drug allergy No Known Allergies [facility] Family History Family Member Name Family Member Gender Family Member Status Date o f Status Description Data Source(s) Unknown Male Problem MEDENT ([facility]) Encounters Encounter Providers Location Date Indications Data Source(s ) ( ESTOB) [facility] Est OB [address] [place] [address] 06/05/2020 12:00:00 AM EST eCW1 ([facility]) ( ESTOB) [facility] Est OB [address] [place] [address] 05/29/2020 12:00:00 AM EST eCW1 ([facility]) (WC ESTOB) [facility] [address] [place] [address] 05/14/2020 12:00:00 AM EST eCW1 [facility] (WC ESTOB) [facility] Est OB [address] [place] [address] 04/25/2020 12:00:00 AM EST eCW1 ([facility]) Outpatient Attender: Akosua Oro [facility] ED-LABGH 04/07/2020 07:34:00 AM EST - 04/07/2020 07:35:00 AM EST Z34.92 [facility] Z34.92 Patient discharged. (WC ESTOB) [facility] [address] [place] [address] 03/27/2020 12:00:00 AM EST eCW1 ([facility]) Unknown [address] [facility] [address] 03/27/2020 12:00:00 AM EST eCW1 ([facility]) ( ESTOB) [facility] Est OB [address] [place] [address] 02/28/2020 12:00:00 AM EDT eCW1 ([facility]) Outpatient Attender: LIZBET GERMAN MD ED-IMAG 01/30 07:48:00 AM EDT - 01/31/2020 07:49:00 AM EDT Z34.82 [facility] Z34.82 Patient discharged. Outpatient CPSCAORT-LABEJN 12/20/2019 03:14:00 PM EDT [facility] Outpatient Attender: Anupama BAKER ED-LABGH 0 12/20/2019 11:42:00 AM EDT - 12/20/2019 11:43:00 AM EDT E06.3 [facility] E06.3 Patient discharged. Outpatient CPSCAORT-LABEJN 10/04/2019 03:47:00 PM EDT [facility] Outpatient Attender: Anupama BAKER ED-LABGH 0 10/04/2019 11:56:00 AM EDT - 10/04/2019 11:57:00 AM EDT E039 E559 D509 [facility] E039 E559 D509 Patient discharged. Outpatient Attender: MELISSA MOREL NPAtte nder: BETHANY PARK MDConsultant: MARIA EUGENIA FORREST NP 09/27/2019 03:43:00 PM EDT - 09/27/2019 03:43 :00 PM EDT [facility] Outpatient Attender: Anupama BAKER ED-IMAG 0 07/06/2019 02:59:00 PM EST - 07/06/2019 03:00:00 PM EST HYPOTHYROIDISM [facility] HYPOTHYROIDISM Patient discharged. Outpatient [facility] 06/28/2019 07:11:00 PM [facility] Outpatient Attender: Anupama BAKER ED-LAB 0 06/28/2019 03:40:00 PM EST - 06/28/2019 03:41:00 PM EST E0 [id number] [facility] E039 [id number] Patient discharged. Outpatient Attender: MARIA EUGENIA FORREST NP ED-LAB 04/2020 10:12:00 AM EST - 06/15/2019 10:13:00 AM EST [address] E039 Patient discharged. Outpatient Attender: MARIA EUGENIA FORREST [facility] 02:47:00 PM EST - 05/20/2019 02:48:00 PM [facility] Patient discharged. Outpatient [facility]-LABEJN 05/18/2019 04:41:00 PM [facility] Emergency Attender: Julio CORTEZttender: Julio BAKER ED-ED 05/18/2019 09:14:00 AM EST - 05/18/2019 12:18:00 PM EST [facility] SOB Patient discharged. Outpatient Attender: MARIA EUGENIA FORREST NP ED-LAB 01:15:00 PM EST - 05/16/2019 01:16:00 PM EST [address] E039 Patient discharged. Immunizations Vaccine Date Status Description Data Source(s) Tdap 04/25/2020 10:43:00 AM EST completed e CW1 ([facility]) Tdap 04/25/2020 10:43:00 AM EST completed e CW1 ([facility]) Tdap 04/25/2020 10:43:00 AM EST completed e CW1 ([facility]) Tdap 04/25/2020 10:43:00 AM EST completed e CW1 ([facility]) Medications Medication Brand Name Start Date Product Form Dose Route Admi nistrative Instructions Pharmacy Instructions Status Indications Reaction Description Data Source(s) 150 mcg 05/23/2020 12:00:00 AM EST tablet 30 TAKE ONE TABLET BY MOUTH EVERY MORNING ON AN EMPTY STOMACH TAKE ONE TABLET BY MOUTH EVERY MORNING O N AN EMPTY STOMACH SOLD: 05/26/2020 [facility] 325 mg (65 mg iron) 03/28/2020 12:00:00 AM EST tablet 60 TAKE ONE TABLET BY MOUTH TWICE A DAY TAKE ONE TABLET BY MOUTH TWICE A DAY SOLD: 03/28/2020 [facility] ferrous sulfate 325 MG Oral Tablet Ferrous Sulfate 325 (65 Fe) MG Ferrous Sulfate 325 (65 Fe) MG 03/27/2020 12:00:00 AM EST 1.0 {tablet} active Ferrous Sulfate 325 (65 Fe) MG eCW1 ([facility]) ferrous sulfate 325 MG Oral Tablet Ferrous Sulfate 325 (65 Fe) MG Ferrous Sulfate 325 (65 Fe) MG 03/27/2020 12:00:00 AM EST 1.0 {tablet} active Ferrous Sulfate 325 (65 Fe) MG eCW1 ([facility]) ferrous sulfate 325 MG Oral Tablet Ferrous Sulfate 325 (65 Fe) MG Ferrous Sulfate 325 (65 Fe) MG 03/27/2020 12:00:00 AM EST 1.0 {tablet} active Ferrous Sulfate 325 (65 Fe) MG eCW1 ([facility]) ferrous sulfate 325 MG Oral Tablet Ferrous Sulfate 325 (65 Fe) MG Ferrous Sulfate 325 (65 Fe) MG 03/27/2020 12:00:00 AM EST 1.0 {tablet} active Ferrous Sulfate 325 (65 Fe) MG eCW1 ([facility]) ferrous sulfate 325 MG Oral Tablet Ferrous Sulfate 325 (65 Fe) MG Ferrous Sulfate 325 (65 Fe) MG 03/27/2020 12:00:00 AM EST 1.0 {tablet} active Ferrous Sulfate 325 (65 Fe) MG eCW1 ([facility]) ferrous sulfate 325 MG Oral Tablet Ferrous Sulfate 325 (65 Fe) MG Ferrous Sulfate 325 (65 Fe) MG 03/27/2020 12:00:00 AM EST 1.0 {tablet} active Ferrous Sulfate 325 (65 Fe) MG eCW1 ([facility]) 150 mcg 03/12/2020 12:00:00 AM EST tablet 30 TAKE ONE TABLET BY MOUTH EVERY MORNING ON AN EMPTY STOMACH TAKE ONE TABLET BY MOUTH EVERY MORNING O N AN EMPTY STOMACH SOLD: 03/13/2020 [facility] 150 mcg 03/12/2020 12:00:00 AM EST tablet 30 TAKE ONE TABLET BY MOUTH EVERY MORNING ON AN EMPTY STOMACH TAKE ONE TABLET BY MOUTH EVERY MORNING O N AN EMPTY STOMACH SOLD: 04/13/2020 [facility] 150 mcg 12/22/2019 12:00:00 AM EDT tablet 30 TAKE ONE TABLET BY MOUTH IN THE MORNING ON AN EMPTY STOMACH ONCE A DAY TAKE ONE TABLET BY MOUTH IN THE MORNING ON AN EMPTY STOMACH ONCE A DAY SOLD: 02/01/2020 [facility] 150 mcg 12/22/2019 12:00:00 AM EDT tablet 30 TAKE ONE TABLET BY MOUTH IN THE MORNING ON AN EMPTY STOMACH ONCE A DAY TAKE ONE TABLET BY MOUTH IN THE MORNING ON AN EMPTY STOMACH ONCE A DAY SOLD: 12/22/2019 [facility] 137 mcg 09/28/2019 12:00:00 AM EDT tablet 30 TAKE ONE TABLET BY MOUTH EVERY DAY TAKE ONE TABLET BY MOUTH EVERY DAY SOLD: 09/28/2019 [facility] 137 mcg 09/28/2019 12:00:00 AM EDT tablet 30 TAKE ONE TABLET BY MOUTH EVERY DAY TAKE ONE TABLET BY MOUTH EVERY DAY SOLD: 11/08/2019 [facility] Isibloom 28 Day Pack 0.15-0.03 mg DESOGESTREL-ETHINYL ESTRAD IOL 09/28/2019 12:00:00 AM EDT tablet 28 TAKE ONE TABLET BY MOUTH EVERY DAY TAKE ONE TABLET BY MOUTH EVERY DAY SOLD: 09/28/2019 [facility] 137 mcg 06/29/2019 12:00:00 AM EST tablet 30 TAKE ONE TABLET BY MOUTH ONCE DAILY TAKE ONE TABLET BY MOUTH ONCE DAILY SOLD: 06/29/2019 [facility] 2 mg 06/29/2019 12:00:00 AM EST lozenge 432 USE 1 LOZENGE 10-15 TIMES A DAY NEEDED USE 1 LOZENGE 10-15 TIMES A DAY NEEDED SOLD: 06/29/2019 [facility] 137 mcg 06/29/2019 12:00:00 AM EST tablet 30 TAKE ONE TABLET BY MOUTH ONCE DAILY TAKE ONE TABLET BY MOUTH ONCE DAILY SOLD: 07/23/2019 [facility] 90 mcg/actuation 05/17/2019 12:00:00 AM EST HFA aerosol inha ler 18 INHALE 1 PUFF EVERY 4 HOURS NEEDED INHALE 1 PUFF EVERY 4 HOURS NEEDED SOLD: 05/18/2019 [facility] 137 mcg 07/29/2018 12:00:00 AM EDT tablet 30 TAKE ONE TABLET BY MOUTH EVERY DAY TAKE ONE TABLET BY MOUTH EVERY DAY SOLD: 04/26/2019 [facility] 137 mcg 07/29/2018 12:00:00 AM EDT tablet 30 TAKE ONE TABLET BY MOUTH EVERY DAY TAKE ONE TABLET BY MOUTH EVERY DAY SOLD: 06/04/2019 [facility] Insurance Providers Payer name Policy type / Coverage type Policy ID Covered green party ID Covered green party's relationship to arrieta Policy Ar[place] Plan Information MISAEL [id number] SP [id number] [employer] [place] [id number] S [id number] [facility] [place] 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 [id number] [facility] [place] [id number] 18 [id number] [facility] [place] [id number] S [id number] [facility] [place] [place] -PHYSICIAN [id number] 18 [id number] [facility] [place] [place] [id number] 18 [id number] [facility] [place] -[place]/P [id number] 18 [id number] [facility] [place] [id number] Self [id number] [facility] [place] [id number] Self [id number] [facility] [place] [id number] Self [id number] [facility] [place] [id number] Self [id number] [facility] [place] [id number] Self [id number] [facility] [place] [id number] Self [id number] [facility] [place] Commercial [id number] Self [id number] [facility] [place] Commercial [id number] Self [id number] [facility] [place] Commercial [id number] Self [id number] [place] [place] [facility] [id number] 18 [id number] [facility] [facility] [place] Commercial [id number] Self [id number] MEDICAID [place] [id number] Medicaid Commercial [id number] Self [id number] BS [employer] Medigap Part B [id number] Self [id number] BS [employer] Commercial [id number] Family Dependent [id number] PRIVATE PAY CO UNAVAILABLE 18 UNAVAI LABLE Private Pay Commercial [id number] Self [id number] BS [employer] Medigap Part B [id number] Self [id number] BS [employer] Commercial [id number] Family Dependent [id number] [employer]UE [employer] BLUE SHIELD-CLINIC [id number] 18 [id number] MEDICAID P [id number] MEDICAID-O/P [id number] 18 [id number] [employer]UE [place]OSS BLUE SHIELD-I/P [id number] 18 [id number] [place]BS [place] PPO 302/307 [id number] SP [id number] [place] BC-BS PPO 306 [id number] HU2 [id number] BLUE [employer]OSS BLUE SHIELD-O/P [id number] 18 [id number] [employer] BC-BS PPO 306 [id number] WI2 [id number] BLUE CROSS -O/P [id number] 01 [id number] BLUE [employer] BLUE SHIELD-CLINIC [id number] 01 [id number] BLUE CROSS -O/P [id number] 18 [id number] BLUE CROSS - CLINIC [id number] 18 [id number] BLUE CROSS - CLINIC [id number] 01 [id number] BLUE [employer]OSS BLUE SHIELD -O/P [id number] 01 [id number] [employer] BCBS B [id number] O CGP [id number] BLUE [place] BLUE SHIELD -I/P [id number] 01 [id number] BS [employer] Medigap Part B Self BS [employer] Commercial Family Dependent [employer] BCBS Medigap Part B Self [employer] BCBS Health Maintenance Organization (HMO) Family Dependent Problems, Conditions, and Diagnoses Code Display Name Description Problem Type Effective Dates Data Source(s) O99.013 [id number] Anemia complicating , third trim hailee Problem 04/25/2020 12:00:00 AM EST [facility] ([facility]) O99.012 Anemia of Anemia complicating pregnanc y, second trimester Problem 03/27/2020 12:00:00 AM EST [facility] ([facility]) Z34.80 care Supervision of other normal P roblem 02/15/2020 12:00:00 AM EDT [facility] ([facility]) [id number] Encounter for initial prescription of co ntraceptive pills Encounter for initial prescription of contraceptive pills Diagnosis 09/27/2019 03:43:00 PM EDT [facility] E07.9 Disorder of thyroid, unspecified DISORDER OF THY ROID, UNSPECIFIED Diagnosis 05/18/2019 09:14:00 AM [facility] R06.02 Shortness of breath SHORTNESS OF BREATH Diagnosis 0 05/18/2019 09:14:00 AM [facility] Surgeries/Procedures Procedure Description Date Indications Data Source(s) Immunization: Boostrix 0.5mL IM (TDAP) 04/25/2020 12:0 0:00 AM EST [facility] ([facility]) THYROXINE FREE 06/15/2019 12:00:00 AM [facility] THYROID STIMULATING HORMONE TSH 06/15/2019 12:00:00 AM [facility] COLLECTION VENOUS BLOOD VENIPUNCTURE ROUTINE VENIPUNCTURE 12:00:[address] [facility] CT THORAX W/CONTRAST MATERIAL CT THORAX W/DYE 05/18/2019 12:00:00 A M [facility] Low osmolar contrast material, 300-399 mg/ml iodine concentr ation, per ml 05/18/2019 12:00:00 AM [facility] [address]97 X-RAY EXAM CHEST 2 VIEWS 05/18/2019 12:00:00 AM [facility] ECG ROUTINE ECG W/LEAST 12 LDS TRCG ONLY W/O I&R ELECTROCARD IOGRAM TRACING 05/18/2019 12:00:00 AM [facility] URINALYSIS MICROSCOPIC ONLY MICROSCOPIC EXAM OF URINE 2019 12:00:00 AM [facility] BLOOD COUNT COMPLETE AUTO&AUTO DIFRNTL WBC COUNT COMPLETE CB C W/AUTO DIFF WBC 05/18/2019 12:00:00 AM [facility] URINE TEST VISUAL COLOR CMPRSN METHS URINE PREGNAN CY TEST 05/18/2019 12:00:00 AM [facility] TROPONIN QUANTITATIVE ASSAY OF TROPONIN QUANT 05/18/2019 12:00:00 A M [facility] COMPREHENSIVE METABOLIC PANEL COMPREHEN METABOLIC PANEL 05/04 12:00:00 AM [facility] FIBRIN DGRADJ PRODUCTS D-DIMER QUANTITATIVE FIBRIN DEGRADATI ON QUANT 05/18/2019 12:00:00 AM [facility] EMERGENCY DEPT VISIT HIGH SEVERITY&THREAT FUNCJ EMERGENCY DE PT VISIT 05/18/2019 12:00:00 AM [facility] Results ID Date Data Source GROUP B STREP CULTURE 05/29/2020 12:00:00 AM EST eCW1 ([facility]) Name Value Range Interpretation Code Description Data Lorenza rce(s) Supporting Document(s) GROUP B STREP CULTURE eCW1 ([facility]) ID Date Data Source [id number] 01/31/2020 04:55:00 PM EDT [facility] Imaging Services Department Imaging Report [address] [place] [address] %(RAD)RES..mtdd.print.filter("line") Name: NERY ELIZAEBTH : 1990 Age/Sex: 29F Ordering Provider: Lizbet Albert MD Med Rec #: [id number] Reg Status: DEP REF Room #: Date of Service: 01/31/20 Report Number: [id number] cc:OLIVIA Anaya; Lizbet Albert MD Send Report To: [id number] US/ Obstetrical Study Reason for exam: ANATOMY LMP: = EDC EGA = wks days EARLIEST ULT N/A = EDC 06/23/2020 EGA = 19 wks 3 days GESTATION: Single PRESENTATION: Vertex, variable PLACENTAL LOCATION: Anterior CORD: 3 vessel INSERTION: Central CERVICAL LENGTH: 44.1 mm ANATOMY VISUALIZED: Four chamber view of the heart, brain and cerebellum appear normal. Chest, abdominal, and pelvic contents appear normal. Extremities and facial structures showed no abnormalities. MEASUREMENTS AND VALUES LISTED BELOW ARE BASED ON TODAY'S EXAM BPD: 47.5 mm 20 w 3 d +/- 12 d HC: 183.1 mm 20 w 5 d +/- 10 d AC: 150.3 mm 20 w 2 d +/- 14 d FL: 33.8 mm 20 w 4 d +/- 13 d HL: 31.0 mm 20 w 2 d +/- 23 d AVERAGE U/S AGE: 20 w 3 d HC/AC: 1.22 (range 1.09-1.26) CI: 77.5 (range 74-83) EFW: 355 grams +/- 53 g (94%) FHR: 130 bpm JAIRO: 12.8 cm FINDINGS: Single viable intrauterine gestation is identified in vertex lie. There is an anterior placenta without evidence of previa. FHR 130 bpm. Cervical length 44 mm. JAIRO 12.8 cm. Average ultrasound age based on today's examination is 20 weeks 3 days +/- 2 weeks. EDC 06/16/2020. EDC based on the initial sonogram is 06/23/2019. This indicates appropriate interval growth. HC/AC ratio is 1.22. CI 77.5. Estimated weight is 355 grams +/- 53 g inthe 94th percentile. Anatomy screen appears unremarkable. The four chamber heart, septum, right and left ventricular outflow tracts all appear unremarkable. Intracranial contents are within normal limits. The facial anatomy including the palate, orbits, facial profile, 4D face, mandible, face, and nose/lips all appear unremarkable. The intraabdominal anatomy including the stomach, kidneys, bladder, diaphragm, cord insertion, and three vessel cord are visualized and appear unremarkable. The spine appears unremarkable. The bilateral upper and lower extremities are within normal limits. IMPRESSION: Single live intrauterine gestation with appropriate interval growthand unremarkable anatomy screen. REPORT DICTATED BY DARRIN MERLOS, REVIEWED AND SIGNED BY DR. GODWIN REPORT SIGNATURE ON FILE Reported By: Darrin Godwin MD <Electronically signed by Bernard Godwin MD> 02/01/20 1132 Dictation Date/Time: 01/31/20 0951 Transcribed Date/Time: 01/31/20 1655 Piano Accompanist: AGATA Name Value Range Interpretation Code Description Data Lorenza rce(s) Supporting Document(s) ID Date Data Source [id number] 12/20/2019 07:22:00 PM EDT [facility] Name Value Range Interpretation Code Description Data Lorenza rce(s) Supporting Document(s) Free T3 result 2.18-3.98 Normal (applies to non-numeric r esults) [facility] Test Performed By: [facility] [address] [place] [address] Director: Shadi Palacios MD ID Date Data Source [id number] 12/20/2019 06:58:00 PM EDT [facility] Name Value Range Interpretation Code Description Data Lorenza rce(s) Supporting Document(s) Free T3 2.18-3.98 Normal (applies to non-numeric resul ts) [facility] Test Performed By: [facility] [address] [place] [address] Director: Shadi Palacios MD ID Date Data Source [id number] 12/20/2019 01:10:00 PM [facility] Value Range Interpretation Code Description Data Lorenza rce(s) Supporting Document(s) Thyroid Stimulate Hormone TSH 0.358-3.74 Above high normal [facility] ID Date Data Source [id number] 12/20/2019 01:10:00 PM [facility] Value Range Interpretation Code Description Data Lorenza rce(s) Supporting Document(s) Free T4 (Free Thyroxine) 0.76-1.46 Normal (applies to non -numeric results) [facility] ID Date Data Source [id number] 10/04/2019 06:44:00 PM [facility] Value Range Interpretation Code Description Data Lorenza rce(s) Supporting Document(s) Iron Level FE result 31 ug/dL 37-170 [facility] Test Performed By: [facility] [address] [place] [address] Director: Shadi Palacios MD ID Date Data Source [id number] 10/04/2019 06:44:00 PM [facility] Value Range Interpretation Code Description Data Lorenza rce(s) Supporting Document(s) Vitamin B12 result 326 pg/mL 193-986 Normal (applies to non-numer ic results) [facility] Test Performed By: [facility] [address] [place] [address] Director: Shadi Palacios MD ID Date Data Source [id number] 10/04/2019 06:44:00 PM [facility] Value Range Interpretation Code Description Data Lorenza rce(s) Supporting Document(s) Ferritin result 5 ng/mL 6.2-137.0 [facility] Test Performed By: [facility] [address] [place] [address] Director: Shadi Palacios MD ID Date Data Source [id number] 10/04/2019 06:22:00 PM EDT [facility] Value Range Interpretation Code Description Data Lorenza rce(s) Supporting Document(s) Iron FE Level 31 ug/dL 37-170 Below low normal [facility] [address] [place] [address] Director: Shadi Palacios MD ID Date Data Source [id number] 10/04/2019 06:23:00 PM EDT [facility] Value Range Interpretation Code Description Data Lorenza rce(s) Supporting Document(s) Ferritin 5 ng/mL 6.2-137.0 Below low normal [facility] Test Performed By: [facility] [address] [place] [address] Director: Shadi Palacios MD ID Date Data Source [id number] 10/04/2019 06:23:00 PM EDT [facility] Value Range Interpretation Code Description Data Lorenza rce(s) Supporting Document(s) Vitamin B12 326 pg/mL 193-986 Normal (applies to non-numeric resu lts) [facility] Test Performed By: [facility] [address] [place] [address] Director: Shadi Palacios MD ID Date Data Source [id number] 10/04/2019 12:51:00 PM EDT [facility] Value Range Interpretation Code Description Data Lorenza rce(s) Supporting Document(s) Thyroid Stimulate Hormone TSH 0.358-3.74 No rmal (applies to non-numeric results) [facility] ID Date Data Source [id number] 10/04/2019 12:51:00 PM EDT [facility] Value Range Interpretation Code Description Data Lorenza rce(s) Supporting Document(s) Free T4 (Free Thyroxine) 0.76-1.46 Normal (applies to non -numeric results) [facility] ID Date Data Source [id number] 10/04/2019 12:24:00 PM EDT [facility] Name Value Range Interpretation Code Description Data Lorenza rce(s) Supporting Document(s) White Blood Count 3.5-10.5 Normal (applies to non-numeri c results) [facility] Red Blood Count 3.90-5.00 Normal (applies to non-numeric results) [facility] Hemoglobin 12.0-15.5 Below low normal [facility] ospital Hematocrit 34.9-44.5 Normal (applies to non-numeric resul ts) [facility] Mean Corpuscular Volume 81.2-95.1 Normal (applies to non- numeric results) [facility] Mean Corpuscular Hgb 25.6-32.2 Below low normal [facility] Mean Corpuscular Hgb Conc 32.0-36.0 Below low normal [facility] Red Cell Distribution Width 11.9-15.5 Above high normal [facility] Platelet Count 302 x10 3/uL 150-450 Normal (applies to non-numeric results) [facility] Mean Platelet Volume 9.4-12.4 Normal (applies to non-num jeyson results) [facility] Neutrophils% (Auto) 31.0-71.0 Normal (applies to non-nume danny results) [facility] Lymphocytes% (Auto) 20.0-55.0 Normal (applies to non-nume danny results) [facility] Monocytes% (Auto) 4.0-12.0 Normal (applies to non-numeri c results) [facility] Eosinophils% (Auto) 1.0-8.0 Normal (applies to non-nume danny results) [facility] Basophils% (Auto) 0.0-2.0 Normal (applies to non-numeri c results) [facility] Immature Granulocytes% (Auto) 0.0-2.0 Normal (alfonso lies to non-numeric results) [facility] Neutrophils# (Auto) 1.50-6.20 Normal (applies to non-nume danny results) [facility] Lymphocytes# (Auto) 1.20-4.00 Normal (applies to non-nume danny results) [facility] Monocytes# (Auto) 0.00-0.90 Normal (applies to non-numeri c results) [facility] Eosinophils# (Auto) 0.00-0.50 Normal (applies to non-nume danny results) [facility] Basophils# (Auto) 0.00-0.20 Normal (applies to non-numeri c results) [facility] Immature Granulocytes# (Auto) 0.00-7.00 No rmal (applies to non-numeric results) [facility] ID Date Data Source [id number] 07/07/2019 09:54:00 AM EST [facility] Imaging Services Department Imaging Report [address] [address] %(RAD)RES..mtdd.print.filter("line") Name: NERY ELIZABETH : 1990 Age/Sex: 29F Ordering Provider: OLIVIA Anaya Med Rec #: [id number] Reg Status: DEP REF Room #: Date of Service: 07/06/19 Report Number: [id number] cc:OLIVIA Anaya Send Report To: [id number] US/US Thyroid Ultrasound Exam Reason for exam: HYPOTHYROIDISM FINDINGS: There is a diffusely heterogeneous echotexture of both lobes. Right lobe measures 4.4 x 1.4 x 1.0 cm. Left lobe measures 4 x 1.2 x 1.2 cm. No discrete solid or cystic mass seen in either lobe. IMPRESSION: Heterogeneous gland without any discrete solid or cystic nodule. REPORT SIGNATURE ON FILE Reported By: Jess Ferrell MD <Electronically signed by Jess Ferrell MD> 07/07/19 1172 Dictation Date/Time: 07/06/19 2948 Transcribed Date/Time: 07/07/19 0954 Piano Accompanist: RAYRAY Name Value Range Interpretation Code Description Data Lorenza rce(s) Supporting Document(s) ID Date Data Source [id number] 06/30/2019 01:43:00 PM [facility] Name Value Range Interpretation Code Description Data Lorenza rce(s) Supporting Document(s) Thyroglobulin Ab result 176 U/mL <=60 Very abn ormal (applies to non-numeric units [facility] Thyroperoxidase Ab result <=60 Very abnormal (applie s to non-numeric units [facility] Test [place] [address] ID Date Data Source [id number] 06/30/2019 01:15:00 PM [facility] Name Value Range Interpretation Code Description Data Lorenza rce(s) Supporting Document(s) Thyroglobulin Ab result 176 U/mL <=60 [facility] Thyroperoxidase Ab result <=60 [facility] Test performed [place] [address] ID Date Data Source [id number] 06/29/2019 05:23:00 AM [facility] Name Value Range Interpretation Code Description Data Lorenza rce(s) Supporting Document(s) T4 result 4.8-13.9 Normal (applies to non-numeric resul ts) [facility] Test Performed By: [facility] [address] [place] [address] Director: Shadi Palacios MD ID Date Data Source [id number] 06/29/2019 05:23:00 AM [facility] Value Range Interpretation Code Description Data Lorenza rce(s) Supporting Document(s) Free T3 result 2.18-3.98 Normal (applies to non-numeric r esults) [facility] Test Performed By: [facility] [address] [place] [address] Director: Shadi Palacios MD ID Date Data Source [id number] 06/28/2019 09:41:00 PM EST [facility] Name Value Range Interpretation Code Description Data Lorenza rce(s) Supporting Document(s) T4 (Thyroxine) 4.8-13.9 Normal (applies to non-numeric r esults) [facility] Test Performed By: [facility] [address] [place] [address] Director: Shadi Palacios MD ID Date Data Source [id number] 06/28/2019 09:41:00 PM [facility] Name Value Range Interpretation Code Description Data Lorenza rce(s) Supporting Document(s) Free T3 2.18-3.98 Normal (applies to non-numeric resul ts) [facility] Test Performed By: [facility] [address] [place] [address] Director: Shadi Palacios MD ID Date Data Source [id number] 06/28/2019 04:45:00 PM [facility] Name Value Range Interpretation Code Description Data Lorenza rce(s) Supporting Document(s) Vitamin D, Total 30.0-100.0 Below low normal [facility] ID Date Data Source [id number] 06/28/2019 04:40:00 PM [facility] Name Value Range Interpretation Code Description Data Lorenza rce(s) Supporting Document(s) Sodium 139 mmol/L 136-145 Normal (applies to non-numeric resul ts) [facility] Potassium 3.5-5.1 Normal (applies to non-numeric resul ts) [facility] Chloride 102 mmol/L 98-107 Normal (applies to non-numeric resul ts) [facility] Carbon Dioxide CO2 21-32 Normal (applies to non-numer ic results) [facility] Anion Gap 5.0-16.0 Normal (applies to non-numeric resul ts) [facility] BUN 18 mg/dL 7-18 Normal (applies to non-numeric results) [facility] Creatinine,Serum 0.7-1.2 Normal (applies to non-numeric results) [facility] GFR >60 Normal (applies to non-numeric results) [facility] Glucose Level 90 mg/dL 60-99 Normal (applies to non-numeric re sults) [facility] Reference range is only applicable when patient is fasting Note the following drug interference: Sulfasalazine Sulfapyridine Can see falsely depressed Can see falsely elevated result with up to 17% results with up to 11% decrease in measurement increase in measurement Recommend patients be collected for this test prior to administration of either drug. Calcium 8.5-10.1 Normal (applies to non-numeric resul ts) [facility] Bilirubin,Total 0.1-1.9 Normal (applies to non-numeric results) [facility] SGOT(AST) 13 U/L 15-37 Below low normal [facility] Note the following drug interference: Sulfasalazine Sulfapyridine Can see falsely depressed Can see falsely elevated result with up to 10% results with up to 10% decrease in measurement increase in measurement Recommend patients be collected for this test prior to administration of either drug. SGPT(ALT) 17 U/L 12-78 Normal (applies to non-numeric resul ts) [facility] Note the following drug interference: Sulfasalazine Sulfapyridine Can see falsely depressed Can see falsely elevated result with up to 29% results with up to 10% decrease in measurement increase in measurement Recommend patients be collected for this test prior to administration of either drug. Alkaline Phosphatase 102 U/L 38-126 Normal (applies to non-num jeyson results) [facility] can increase Alkaline Phosp le vels up to 2 times the normal adult value. Normal values for children and adolescents are 2 to 3 times the normal adult value. Total Protein 6.0-8.2 Normal (applies to non-numeric re sults) [facility] Albumin Level 3.4-5.0 Normal (applies to non-numeric re [facility]) [facility] ID Date Data Source [id number] 06/28/2019 04:40:00 PM EST [facility] Name Value Range Interpretation Code Description Data Lorenza rce(s) Supporting Document(s) Thyroid Stimulate Hormone TSH 0.358-3.74 Above high normal [facility] ID Date Data Source [id number] 06/28/2019 04:07:00 PM EST [facility] Name Value Range Interpretation Code Description Data Lorenza rce(s) Supporting Document(s) White Blood Count 3.5-10.5 Normal (applies to non-numeri c results) [facility] Red Blood Count 3.90-5.00 Normal (applies to non-numeric results) [facility] Hemoglobin 12.0-15.5 Below low normal [facility] ospital Hematocrit 34.9-44.5 Normal (applies to non-numeric resul ts) [facility] Mean Corpuscular Volume 81.2-95.1 Normal (applies to non- numeric results) [facility] Mean Corpuscular Hgb 25.6-32.2 Below low normal [facility] Mean Corpuscular Hgb Conc 32.0-36.0 Below low normal [facility] Red Cell Distribution Width 11.9-15.5 Above high normal [facility] Platelet Count 316 x10 3/uL 150-450 Normal (applies to non-numeric results) [facility] Mean Platelet Volume 9.4-12.4 Normal (applies to non-num jeyson results) [facility] Neutrophils% (Auto) 31.0-71.0 Normal (applies to non-nume danny results) [facility] Lymphocytes% (Auto) 20.0-55.0 Normal (applies to non-nume danny results) [facility] Monocytes% (Auto) 4.0-12.0 Normal (applies to non-numeri c results) [facility] Eosinophils% (Auto) 1.0-8.0 Normal (applies to non-nume danny results) [facility] Basophils% (Auto) 0.0-2.0 Normal (applies to non-numeri c results) [facility] Immature Granulocytes% (Auto) 0.0-2.0 Normal (alfonso lies to non-numeric results) [facility] Neutrophils# (Auto) 1.50-6.20 Normal (applies to non-nume danny results) [facility] Lymphocytes# (Auto) 1.20-4.00 Normal (applies to non-nume danny results) [facility] Monocytes# (Auto) 0.00-0.90 Normal (applies to non-numeri c results) [facility] Eosinophils# (Auto) 0.00-0.50 Normal (applies to non-nume danny results) [facility] Basophils# (Auto) 0.00-0.20 Normal (applies to non-numeri c results) [facility] Immature Granulocytes# (Auto) 0.00-7.00 No rmal (applies to non-numeric results) [facility] ID Date Data Source [id number] 06/16/2019 01:33:00 AM [facility] Name Value Range Interpretation Code Description Data Lorenza rce(s) Supporting Document(s) Thyroid Stimulate Hormone TSH 0.358-3.74 No rmal (applies to non-numeric results) [facility] ID Date Data Source [id number] 06/16/2019 01:33:00 AM [facility] Name Value Range Interpretation Code Description Data Lorenza rce(s) Supporting Document(s) Free T4 (Free Thyroxine) 0.76-1.46 Normal (applies to non -numeric results) [facility] ID Date Data Source [id number] 05/18/2019 06:00:[address] [facility] Imaging Services Department Imaging Report [address] [id number] %(RAD)RES..mtdd.print.filter("line") Name: NERY ELIZABETH : 1990 Age/Sex: 29F Ordering Provider: OLIVIA Jerry Med Rec #: [id number] Reg Status: DEP ER Room #: Date of Service: 05/18/19 Report Number: [id number] cc:CANDACE Chacko Send Report To: [id number] CT/CT Chest for PE with Contrast Reason for exam: short of breath FINDINGS: The neck base is normal. There is a pleural based nodule in the right minor fissure measuring 3 mm. No focal infiltrate is visualized. The heart is no rmal in size. There is no evidence of PE. No acute osseous abnormality. The visualized upper abdomen is normal. IMPRESSION: No acute pulmonary process. No evidence of pulmonary embolism. 3 mm pleural based nodule along the right minor fissure. Consider follow CT scan of the chest without contrast in one year to follow up for stability. While performing the above CT exam, the following dose reduction techniques wereused: *Automated exposure control *Adjustment of the mA and/or kV according to patient size *Use of iterative reconstruction technique CT Dose in mGy: 6.81 Contrast Agent: Isovue 370 Amount in ml: 55 Method of Administration: Intraveneous REPORT SIGNATURE ON FILE Reported By: Goldy Pate MD <Electronically signed by Goldy Pate MD> 05/19/19 1447 Dictation Date/Time: 05/18/19 1153 Transcribed Date/Time: 05/18/19 1800 Piano Accompanist: AGATA Name Value Range Interpretation Code Description Data Lorenza rce(s) Supporting Document(s) ID Date Data Source [id number] 05/20/2019 09:45:00 AM [facility] Procedure Performed By: [facility] [address] [place] [address] Director: Ginny Palacios MD Name Value Range Interpretation Code Description Data Lorenza rce(s) Supporting Document(s) Urine Culture Normal (applies to non-numeric re sults) [facility] ID Date Data Source [id number] 05/18/2019 10:47:00 AM [facility] Name Value Range Interpretation Code Description Data Lorenza rce(s) Supporting Document(s) Sodium 139 mmol/L 136-145 Normal (applies to non-numeric resul ts) [facility] Potassium 3.5-5.1 Normal (applies to non-numeric resul ts) [facility] Chloride 102 mmol/L 98-107 Normal (applies to non-numeric resul ts) [facility] Carbon Dioxide CO2 21-32 Normal (applies to non-numer ic results) [facility] Anion Gap 5.0-16.0 Normal (applies to non-numeric resul ts) [facility] BUN 18 mg/dL 7-18 Normal (applies to non-numeric results) [facility] Creatinine,Serum 0.7-1.2 Normal (applies to non-numeric results) [facility] GFR >60 Normal (applies to non-numeric results) [facility] Glucose Level 86 mg/dL 60-99 Normal (applies to non-numeric re sults) [facility] Reference range is only applicable when patient is fasting Note the following drug interference: Sulfasalazine Sulfapyridine Can see falsely depressed Can see falsely elevated result with up to 17% results with up to 11% decrease in measurement increase in measurement Recommend patients be collected for this test prior to administration of either drug. Calcium 8.5-10.1 Normal (applies to non-numeric resul ts) [facility] Bilirubin,Total 0.1-1.9 Normal (applies to non-numeric results) [facility] SGOT(AST) 9 U/L 15-37 Below low normal [facility] skylar Note the following drug interference: Sulfasalazine Sulfapyridine Can see falsely depressed Can see falsely elevated result with up to 10% results with up to 10% decrease in measurement increase in measurement Recommend patients be collected for this test prior to administration of either drug. SGPT(ALT) 20 U/L 12-78 Normal (applies to non-numeric resul ts) [facility] Note the following drug interference: Sulfasalazine Sulfapyridine Can see falsely depressed Can see falsely elevated result with up to 29% results with up to 10% decrease in measurement increase in measurement Recommend patients be collected for this test prior to administration of either drug. Alkaline Phosphatase 84 U/L 38-126 Normal (applies to non-num jeyson results) [facility] can increase Alkaline Phosp le vels up to 2 times the normal adult value. Normal values for children and adolescents are 2 to 3 times the normal adult value. Total Protein 6.0-8.2 Normal (applies to non-numeric re sults) [facility] Albumin Level 3.4-5.0 Normal (applies to non-numeric re sults) [facility] ID Date Data Source [id number] 05/18/2019 10:47:00 AM [facility] Name Value Range Interpretation Code Description Data Lorenza rce(s) Supporting Document(s) Troponin I 0.000-0.056 Normal (applies to non-numeric resu lts) [facility] ID Date Data Source [id number] 05/18/2019 10:29:00 AM [facility] Name Value Range Interpretation Code Description Data Lorenza rce(s) Supporting Document(s) D-Dimer,Quant 0.19-0.50 Above high normal [facility] The negative predictive value for DVT or PE is at 98% when the result is below the cut off value of 0.50 mg/L FEU. Increases in D-Dimer concentration observed with thromboembolic events can be variable due to localization, size, and age of thrombus. Therefore, a thromboembolic event cannot be diagnosed with certainty on the basis of the reference range. D-Dimers may also be elevated for a variety of disorders including: advanced age, , coronary disease, cancer, liver disease, infection, inflammation, hematoma, DIC, trauma, post surgery, diabetes, thrombolytic therapy, stress, and general hospitialization. D-Dimer levels may be decreased in patients on anticoagulant therapy. ID Date Data Source [id number] 05/18/2019 10:16:00 AM [facility] Name Value Range Interpretation Code Description Data Lorenza rce(s) Supporting Document(s) White Blood Count 3.5-10.5 Normal (applies to non-numeri c results) [facility] Red Blood Count 3.90-5.00 Normal (applies to non-numeric results) [facility] Hemoglobin 12.0-15.5 Below low normal [facility] o[facility]ital Hematocrit 34.9-44.5 Normal (applies to non-numeric resul ts) [facility] Mean Corpuscular Volume 81.2-95.1 Normal (applies to non- numeric results) [facility] Mean Corpuscular Hgb 25.6-32.2 Below low normal [facility] Mean Corpuscular Hgb Conc 32.0-36.0 Below low normal [facility] Red Cell Distribution Width 11.9-15.5 Normal (appli es to non-numeric results) [facility] Platelet Count 320 x10 3/uL 150-450 Normal (applies to non-numeric results) [facility] Mean Platelet Volume 9.4-12.4 Normal (applies to non-num jeyson results) [facility] Neutrophils% (Auto) 31.0-71.0 Normal (applies to non-nume danny results) [facility] Lymphocytes% (Auto) 20.0-55.0 Normal (applies to non-nume danny results) [facility] Monocytes% (Auto) 4.0-12.0 Normal (applies to non-numeri c results) [facility] Eosinophils% (Auto) 1.0-8.0 Normal (applies to non-nume danny results) [facility] Basophils% (Auto) 0.0-2.0 Normal (applies to non-numeri c results) [facility] Immature Granulocytes% (Auto) 0.0-2.0 Normal (alfonso lies to non-numeric results) [facility] Neutrophils# (Auto) 1.50-6.20 Normal (applies to non-nume danny results) [facility] Lymphocytes# (Auto) 1.20-4.00 Normal (applies to non-nume danny results) [facility] Monocytes# (Auto) 0.00-0.90 Normal (applies to non-numeri c results) [facility] Eosinophils# (Auto) 0.00-0.50 Normal (applies to non-nume danny results) [facility] Basophils# (Auto) 0.00-0.20 Normal (applies to non-numeri c results) [facility] Immature Granulocytes# (Auto) 0.00-7.00 No rmal (applies to non-numeric results) [facility] ID Date Data Source [id number] 05/18/2019 10:42:00 AM [facility] Collected By: Nurse Initials: cls Time Collected: 953 Collected By: Nurse Initials: cls Time Collected: 953 Name Value Range Interpretation Code Description Data Lorenza rce(s) Supporting Document(s) Color,Urine Colorl-Dk Y Normal (applies to non-numeric res ults) [facility] Clarity,Urine Clear Normal (applies to non-numeric re sults) [facility] Specific [place],Urine 1.015-1.025 Normal (applies to non- numeric results) [facility] pH,Urine 5.0-7.0 Normal (applies to non-numeric resul ts) [facility] Protein,Urine Negative Normal (applies to non-numeric re sults) [facility] Glucose,Urine Negative Normal (applies to non-numeric re sults) [facility] Ketones,Urine Negative Normal (applies to non-numeric re sults) [facility] Blood,Urine Negative [facility] l Bilirubin,Urine Negative Normal (applies to non-numeric results) [facility] Urobilinogen,Urine Normal Normal (applies to non-numer ic results) [facility] Leukocyte Esterase,Urine Negative [facility] Nitrite,Urine Negative Normal (applies to non-numeric re sults) [facility] RBC,Urine None Seen [facility] WBC,Urine None Seen [facility] Casts,Urine None Seen Normal (applies to non-numeric resu lts) [facility] Squamous Cells,Urine None Seen [facility] Bacteria,Urine None Seen [facility] ital ID Date Data Source [id number] 05/18/2019 10:42:00 AM [facility] Collected By: Nurse Initials: cls Time Collected: 953 Collected By: Nurse Initials: cls Time Collected: 953 Name Value Range Interpretation Code Description Data Lorenza rce(s) Supporting Document(s) HCG,Ur Negative Normal (applies to non-numeric results) [facility] ID Date Data Source [id number] 05/18/2019 06:47:00 PM [facility] skylar [facility] Imaging Services Department Imaging Report [address], [place] [address] %(RAD)RES..mtdd.print.filter("line") Name: NERY ELIZABETH : 1990 Age/Sex: 29F Ordering Provider: OLIVIA Jerry Med Rec #: [id number] Reg Status: [facility] ER Room #: Date of Service: 05/18/19 Report Number: [id number] cc:CANDACE Chacko Send Report To: [id number] XRP/XR Chest 2 View [Pa & Lat] Reason for exam: Chest pain complaint FINDINGS: The cardiac and mediastinal silhouettes appear normal and the lungs are clear. The bones and soft tissues are normal. The upper abdomen is unremarkable. IMPRESSION: No acute disease identifiable. REPORT DICTATED BY DARRIN MERLOS, REVIEWED AND SIGNED BY DR. CHERY. Time portable performed: Fluoroscopy time in seconds: Number of Exposures: Contrast Agent in ml: Method of Administration: REPORT SIGNATURE ON FILE Reported By: Darrin Chery MD <Electronically signed by Darrin Chery MD> 05/19/19 1444 Dictation Date/Time: 05/18/19 1051 Transcribed Date/Time: 05/18/19 1847 Piano Accompanist: RAYRAY Name Value Range Interpretation Code Description Data Lorenza rce(s) Supporting Document(s) ID Date Data Source [id number] 05/16/2019 03:12:00 PM [facility] Name Value Range Interpretation Code Description Data Lorenza rce(s) Supporting Document(s) Thyroid Stimulate Hormone TSH 0.358-3.74 Above [facility] Procedure Vital Signs ID Date Data Source UNK Name Value Range Interpretation Code Description Data Source(s) Diastolic blood pressure 70 mm[Hg] 70 mm[Hg] eCW1 ([facility]) Systolic blood pressure 110 mm[Hg] 110 mm[Hg] e CW1 ([facility]) Body mass index (BMI) [Ratio] 33.701 kg/m2 33.7 01 kg/m2 eCW1 ([facility]) Body height 66 [in_i] 66 [in_i] eCW1 ([facility]) Body weight 208.8 [lb_av] 208.8 [lb_av] eCW1 ([facility]) Diastolic blood pressure 70 mm[Hg] 70 mm[Hg] eCW1 ([facility]) Systolic blood pressure 110 mm[Hg] 110 mm[Hg] e CW1 ([facility]) Body mass index (BMI) [Ratio] 33.185 kg/m2 33.1 85 kg/m2 W1 ([facility]) Body height 66 [in_i] 66 [in_i] eCW1 ([facility]) Body weight 205.6 [lb_av] 205.6 [lb_av] eCW1 ([facility]) Diastolic blood pressure 68 mm[Hg] 68 mm[Hg] eCW1 ([facility]) Systolic blood pressure 102 mm[Hg] 102 mm[Hg] e CW1 ([facility]) Body mass index (BMI) [Ratio] 33.023 kg/m2 33.0 23 kg/m2 eCW1 ([facility]) Body height 66 [in_i] 66 [in_i] eCW1 ([facility]) Body weight 204.6 [lb_av] 204.6 [lb_av] eCW1 ([facility]) Diastolic blood pressure 60 mm[Hg] 60 mm[Hg] eCW1 ([facility]) Systolic blood pressure 108 mm[Hg] 108 mm[Hg] e CW1 ([facility]) Body mass index (BMI) [Ratio] 32.604 kg/m2 32.6 04 kg/m2 eCW1 ([facility]) Body height 66 [in_i] 66 [in_i] eCW1 ([facility]) Body weight 202 [lb_av] 202 [lb_av] eCW1 ([facility]) Diastolic blood pressure 74 mm[Hg] 74 mm[Hg] eCW1 ([facility]) Systolic blood pressure 126 mm[Hg] 126 mm[Hg] e CW1 ([facility]) Body mass index (BMI) [Ratio] 31.797 kg/m2 31.7 97 kg/m2 W1 ([facility]) Body height 66 [in_i] 66 [in_i] eCW1 ([facility]) Body weight 197 [lb_av] 197 [lb_av] eCW1 ([facility]) Diastolic blood pressure 72 mm[Hg] 72 mm[Hg] eCW1 ([facility]) Systolic blood pressure 124 mm[Hg] 124 mm[Hg] e CW1 ([facility]) Body mass index (BMI) [Ratio] 30.99 kg/m2 30.99 kg/m2 W1 ([facility]) Body height 66 [in_i] 66 [in_i] eCW1 ([facility]) Body weight 192 [lb_av] 192 [lb_av] eCW1 ([facility]) Body surface area 1.87 m2 1.87 m2 MEDENT ([facility]) Body mass index (BMI) [Ratio] 29.3 kg/m2 29.3 k g/m2 [facility] ([facility]) Body height 65 [in_i] 65 [in_i] [facility] 5'5" Body weight 79.834 kg 79.834 kg [facility] Body weight 176.00 [lb_av] 176.00 [lb_av] MEDEN T ([facility]) Body temperature 98.7 [degF] 98.7 [degF] MEDENT ([facility]) Heart rate 80 /min 80 /min MEDENT ([facility]) Diastolic blood pressure 56 mm[Hg] 56 mm[Hg] MEDENT ([facility]) Systolic blood pressure 110 mm[Hg] 110 mm[Hg] M EDENT ([facility]) ID Date Data Source [id number] 05/23/2019 03:43:00 PM EST [facility] Name Value Range Interpretation Code Description Data Source(s) Weight Measurement Method 8 8 [facility] Weight 2720 2720 [facility] pital Temperature Source 7 7 [facility] Temperature 97.6 97.6 [facility] spital Respiratory Effort 1 1 [facility] Respiratory Rate 16 16 [facility] Pulse Assessment Method 4 4 G [facility] Pulse Rate 61 61 [facility]ital Height 66 66 [facility] Pressure 104/68 104/68 [facility] Weight Measurement Method 8 8 [facility] Weight 2720 2720 [facility] pital Temperature Source 7 7 [facility] Temperature 97.6 97.6 [facility] spital Respiratory Effort 1 1 [facility] Respiratory Rate 16 16 [facility] Pulse Assessment Method 4 4 G [facility] Pulse Rate 82 82 [facility] pital Height 66 66 [facility] Blood Pressure 115/81 115/81 [facility] Patient Treatment Plan of Care Planned Activity Planned Date Details Description Data Source (s) ferrous sulfate 325 MG Oral Tablet 03/27/2020 12:00:00 AM EST eCW1 ([facility]) ferrous sulfate 325 MG Oral Tablet 03/27/2020 12:00:00 AM EST eCW1 ([facility])
[2020-06-14] MEDS ORDERED: LR 1,000 ML IV SCH (10:32)
[2020-06-14 10:45] LABS: HEMATOCRIT 33.6 % (36.0-47.0); MEAN CORPUSCULAR HEMOGLOBIN 23.9 pg (27.0-33.0); MEAN CORPUSCULAR HGB CONC 29.8 g/dl (32.0-36.5); MEAN CORPUSCULAR VOLUME 80.4 fl (80.0-96.0); PLATELET COUNT, AUTOMATED 242 10^3/uL (150-450); RED BLOOD COUNT 4.18 10^6/uL (4.00-5.40); WHITE BLOOD COUNT 10.2 10^3/uL (4.0-10.0)
[2020-06-14] MEDS ORDERED: OXYTOCIN DRIP 30 UNITS in IV 1 EA IV SCH ×2 (10:45→16:10)
--- NOTE | 2020-06-14 12:00 | HPEPDOC ---
Obstetrical History & Physical General Date of Admission Jun 14, 2020 at 09:40 History of Present Illness 30yo presents at 38w5 with c/o LOF clear fluid at 0200. has irreg ctx. No vaginal bleeding. Reports active movement. Chief Complaint: Rupture of membranes Information Provided By: Patient Age: 30 : 5 Livin Care Care: Good Care Dating Final EDC: Jun 23, 2020 Final EDC by: LMP, 1st trimester (US) Past Medical History Past Obstetrical History #1: Past Obstetrical History: Primgravida Date of Delivery: Oct 14, 2012 Gestation: 40 Type of Delivery: Spontaneous Vaginal Del. Sex of : Male Complications: No Past Obstetrical History #2: Past Obstetrical History: Multigravida Date of Delivery: Jan 17, 2015 Gestation: 40 Type of Delivery: Spontaneous Vaginal Del. Sex of : Female Complications: No Past Obstetrical History #3: Past Obstetrical History: Multigravida Date of Delivery: Nov 23, 2018 Gestation: 40 Type of Delivery: Spontaneous Vaginal Del. Sex of Infant: Male Complications: No [employer] History: No pertinent history Past Medical History Surgical History: Denies/None Family History Significant Family History: No pertinent family hx Social History Psychosocial History: No pertinent psych hx * Smoker: non-smoker Alcohol: Denies Drugs: denies Allergies Coded Allergies: No Known Allergies (Unverified , 06/14/20) Medications Scheduled Ferrous Gluconate (Iron) 236 Mg Tablet, 1 TAB PO DAILY Levothyroxine Sodium (Levothyroxine Sodium) 150 Mcg Tablet, 150 MCG PO DAILY Miscellaneous Medications Lactobacillus Acidophilus (Probiotic) 1 Each Capsule, 1 CAP PO Physical Examination Physical Examination GENERAL: Alert and oriented times three. BREAST: . ABDOMEN: Gravid and non-tender to touch. FETUS: Is vertex (VTX) by sterile vaginal examination (SVE), fetus is vertex (VTX) by Jj. HEART RATE: Regular rate and rhythm. LUNGS: Clear to auscultation (CTA). Vital Signs/I&O Vital Signs Date Time Temp Pulse Resp B/P (MAP) Pulse Ox O2 Delivery O2 Flow Rate FiO2 06/14/20 09:42 88 135/88 (104) 06/14/20 09:27 98.4 20 Laboratory Data 24H LABS Laboratory Tests 2 06/14/20 09:47: Serology Scanned Report Hepatitis B Testing 06/14/20 10:34: Nucleated Red Blood Cells % (auto) 0.0, Syphilis Serology NONREACTIVE CBC/BMP Laboratory Tests 06/14/20 10:34 Pertinent Laboratoy Data Blood Type: O+ RBC Antibody Screen: Negative HIV: Negative Hepatitis B: Negative Hepatitis C: Negative Rapid Plasma Reagin: Nonreactive Rubella: Immune Chlamydia/Gonorrhea: Negative Group B Streptococcus: Negative Glucose Tolerance Test: 132 Anatomy Ultrasound Normal Anatomy: Yes Placenta Previa: No Vaginal Examination Dilation: 1cm (grossly rupyured) Effacement: 30% Station: -2 Cervical Consistency: Soft Cervical Position: Posterior Presentation: Cephalic presentation Assessment Variability: Moderate Accelerations: Positive Tocometer Contractions: Yes Frequency: irregular Assessment/Plan Assessment 30yo at 38w6d with PROM Reassuring status Plan Admit and orient. 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 Group B Streptococcus (GBS) negative. Labs and intravenous (IV) per unit protocol. Counseled on Pitocin and induction of labor (IOL). Anticipate normal spontaneous delivery (). C-S as appropriate. IZYZ FELDMAN MD. Jun 14, 2020 11:59
[2020-06-14] MEDS ORDERED: FENTANYL 2MCG/ML ROPIVACAINE 0.2% IN 0.9% NACL 100ML IVBAG As Ordered ONE (14:06)
[2020-06-14] MEDS ORDERED: diphenhydrAMINE 50MG/ML VIAL (J1200) IV PRN (14:15)
[2020-06-14] MEDS ORDERED: EPIDURAL COMMENT XX SCH (14:15)
[2020-06-14] MEDS ORDERED: EPIDURAL/PCA KEYS XX PRN (14:15)
[2020-06-14] MEDS ORDERED: REFRIGERATOR IV KEYS XX PRN (14:15)
[2020-06-14] MEDS ORDERED: FENTANYL/ROPIVACAINE/NACL BAG 100 ML EPIDURAL SCH (14:15)
[2020-06-14] MEDS ORDERED: LACTATED RINGER'S 1000 ML IV PRN (14:15)
[2020-06-14] MEDS ORDERED: NALOXONE INJ 0.4MG/1ML VIAL (J2310 PER 1MG) IV PRN (14:15)
[2020-06-14] MEDS ORDERED: ePHEDrine SULFATE 25 MG/5 ML(5MG/ML) SYRINGE IV PRN (14:15)
[2020-06-14] MEDS ORDERED: ONDANSETRON 4MG/2ML VIAL IV PRN (14:15)
--- NOTE | 2020-06-14 16:08 | DNPDOC ---
[facility] Delivery Note Delivery Note DATE OF DELIVERY: 06/14/2020 TIME OF : 1541 GENDER: Male APGARS: 89 and 9. WEIGHT: 3540 grams or 7 pounds 13ounces. LACERATIONS: 1MLL ANESTHESIA: epidural ESTIMATED BLOOD LOSS: 200 ml COUNTS: 5 laparotomy sponges accounted for prior to after delivery. 1 sharps removed from delivery field. DELIVERY NOTE: On 06/14/2020 30-year-old 5 now para 4 had a spontaneous vaginal delivery of a liveborn male Apgars 9 and 9 weight was 3540 g or 7 lbs. 13 oz. Head was delivered occiput anterior (OA), followed by delivery of the shoulders and corpus. was handed to mom with a good cry. Cord was clamped times two and was cut by support person under my direction. Placenta was then drained and delivered grossly intact. A premixed bag of 500 mL of normal saline with 30 units of Pitocin was then bolused along with uterine massage until the uterus was firm. On inspection there was a 1MLL that was repaired with 3-0 Vicryl. On reinspection, cervix, vagina, perineum was grossly intact and hemostatic. Mom and baby in recovery on stable condition. The couples decided to name in son IZZY FELDMAN MD. Jun 14, 2020 16:08
[2020-06-14] MEDS ORDERED: IBUPROFEN 600MG TAB PO PRN (16:15)
[2020-06-14] MEDS ORDERED: METHYLERGONOVINE MALEATE 0.2 MG TAB PO PRN (16:15)
[2020-06-14] MEDS ORDERED: DOCUSATE SODIUM 100MG CAPSULE PO PRN (16:15)
[2020-06-14] MEDS ORDERED: MEASLES,MUMPS,RUBELLA VACCINE INJ (MMR-II) (90707) SC SCH (16:15)
[2020-06-14] MEDS ORDERED: MOM 30ML SUSPENSION UDC PO PRN (16:15)
[2020-06-14] MEDS ORDERED: ACETAMINOPHEN 500 MG TAB PO PRN (16:15)
[2020-06-14] MEDS ORDERED: RHOGAM 300 MCG (1500 IU) INJ (J2790) IM SCH (16:15)
[2020-06-14] MEDS ORDERED: ANUSOL HC CREAM 30GM TOP PRN (16:15)
[2020-06-14] MEDS ORDERED: BENZOCAINE 20% HEMORRHOIDAL OINTMENT 28GM TUBE TOP PRN (16:15)
[2020-06-14] MEDS ORDERED: ACETAMINOPHEN TAB 650MG DOSE (2X325MG) PO PRN (16:15)
[2020-06-14] MEDS ORDERED: IBUPROFEN 800 MG TAB PO PRN (16:15)
[2020-06-15 05:36] VITALS: BP 136/79
[2020-06-15] MEDS ORDERED: PRENATAL VITAMINS CHEWABLE TABLET PO SCH (09:00)
[2020-06-15] MEDS ORDERED: INFLUENZA QUADRIVALENT PF VACCINE 0.5ML SYRINGE IM ONE (09:00)
--- NOTE | 2020-06-15 10:22 | IPNPDOC ---
Text Note Date of Service The patient was seen on 06/15/20. NOTE PP #1 Feels well. Adequate pain management. . Voiding. VSS, afebrile, normotensive Breasts soft, nipples intact Fundus firm, NT, down 1 FB Lochia rubra light without odor Perineum well approximated PP #1, Routine care. Consider D/C this pm VS,Fishbone, I+O VS, Fishbone, I+O Laboratory Tests 06/14/20 10:34 Vital Signs Date Time Temp Pulse Resp B/P (MAP) Pulse Ox O2 Delivery O2 Flow Rate FiO2 06/15/20 05:36 97.7 72 16 136/79 (98) I&O- Last 24 Hours up to 6 AM 06/15/20 06:00 Intake Total 1626.6 ml Output Total 725 ml Balance 901.6 ml Akosua Oro CNM Jun 15, 2020 10:22
== END 2020-06-15 18:30 | disposition home or self-care (01) | DRG 560 ==
LOC: M LDO 09:11 → M LDI 09:40 → M OBS 17:30
PROVIDERS: ADMIT Obstetrics & Gynecology; ATTEND Obstetrics & Gynecology
PROC: 10E0XZZ Delivery of Products of Conception, External Approach (ICD-10-PCS; principal; 2020-06-14)
PROC: 0HQ9XZZ Repair Perineum Skin, External Approach (ICD-10-PCS; 2020-06-14)
DX: O42.02 Full-term premature rupture of membranes, onset of labor within 24 hours of rupture (principal); Z3A.38 38 weeks gestation of pregnancy; Z37.0 Single live birth; O70.0 First degree perineal laceration during delivery